=== PATIENT | female | born 1990 | race Caucasian/White ===

== ENCOUNTER 2019-03-06 00:53 | Inpatient (IN) | payer OTHER ==
[2019-03-06] MEDS ORDERED: SODIUM CHLORIDE 0.9% 500 ML INFUS.BAG IV ONE (02:37)
[2019-03-06] MEDS ORDERED: ACETAMINOPHEN 1000 MG/100 ML VIAL (NON FORMULARY) IVPB ONE (02:37)
--- NOTE | 2019-03-06 02:43 | PDOC ---
History of Present Illness - General Chief Complaint: Pain, Acute Stated Complaint: FEVER Time Seen by Provider: 03/06/19 01:38 - History of Present Illness Initial Comments: Ms. Lloyd is a 28 y/o female @ 24 weeks with hx of UTIs, presenting today with right sided flank pain that started 2 days ago associated with fever and chills. Reports that the pain starts in her right flank and radiates down to her right lower abdomen. No nausea/vomiting. No dysuria, no hematuria. Reports constipation. No vaginal bleeding or discharge. No blood in the stool. She has had prior UTIs before over the past several months, but is unsure of the antibiotics she was taking. No CP/SOB/ESTRADA. Past History - Past Medical History Allergies/Adverse Reactions: Allergies Allergy/AdvReac Type Severity Reaction Status Date / Time No Known Allergies Allergy Verified 03/06/19 01:22 Home Medications: Ambulatory Orders No122/Iron/Folic Acid [ Multi Tablet] 1 each PO DAILY 03/06/19 COPD: No - Suicide/Smoking/Psychosocial Hx Smoking History: Never smoked Review of Systems - Review of Systems Comments:: ROS GENERAL/CONSTITUTIONAL: Reports fever or chills. No weakness._ HEAD, EYES, EARS, NOSE AND THROAT: No change in vision. No change in hearing. No sore throat._ CARDIOVASCULAR: No chest pain or shortness of breath_ RESPIRATORY: Denies cough, hemoptysis_ GASTROINTESTINAL: No nausea, vomiting, diarrhea. Reports constipation. GENITOURINARY: No dysuria, frequency, or change in urination. MUSCULOSKELETAL: No joint or muscle swelling or pain. No neck pain. Reports right flank pain. SKIN: No rash_ NEUROLOGIC: No headache, vertigo, loss of consciousness, or change in strength/ sensation._ ENDOCRINE: No increased thirst. No abnormal weight change_ HEMATOLOGIC/LYMPHATIC: No anemia, easy bleeding, or history of blood clots._ ALLERGIC/IMMUNOLOGIC: No hives or skin allergy._ *Physical Exam - Vital Signs Last Vital Signs Temp Pulse Resp BP Pulse Ox 100.9 F H 142 H 20 129/66 98 03/06/19 01:21 03/06/19 01:21 03/06/19 01:21 03/06/19 01:21 03/06/19 01:21 - Physical Exam Comments: GENERAL: Awake, alert, and oriented to person/place/time, in no acute distress_ HEAD: No signs of trauma, normocephalic, atraumatic _ EYES: PERRLA, EOMI, sclera anicteric, conjunctiva clear_ ENT: Hearing grossly normal, nares patent, oropharynx clear without exudates. No uvular deviation. Moist mucosa_ NECK: Normal ROM, supple, no lymphadenopathy, JVD, or masses_ LUNGS: No distress, speaks in full sentences, clear to auscultation bilaterally _ HEART: Regular rate and rhythm, normal S1 and S2, no murmurs appreciated, peripheral pulses normal and equal bilaterally._ ABDOMEN: Soft, gravid, TTP RLQ, normoactive bowel sounds. No guarding, no rebound. No masses_ BACK: right sided CVA tenderness EXTREMITIES: Normal inspection, Normal range of motion, no edema. No clubbing or cyanosis_ NEUROLOGICAL: Cranial nerves II through XII grossly intact. Normal speech, normal gait, no focal sensorimotor deficits _ SKIN: Warm, Dry, normal turgor, no rashes or lesions noted_ ED Treatment Course - LABORATORY CBC & Chemistry Diagram: 03/06/19 02:35 03/06/19 02:35 Medical Decision Making - Medical Decision Making 28F @ 24 weeks presenting with 2 days of right flank pain associated with fever and chills. No dysuria, no hematuria. Prior UTIs befoire but cannot remember the abx she took. CBC, CMP, UA/UC, T+S, beta HCG quant. 03/06/19 04:08 Labs reviewed. WBC elevated. Patient reassessed. HR 115's. Sats 100%. Oral temp 100.8F 03/06/19 04:22 EKG shows NSR, 115 bpm, no axis deviation, no ST elevation/depression, QTc 462 ms. UA positive for leuk esterases and nitrites. 03/06/19 05:[address] Alexander ROTH who agrees to admit the patient for IV antibiotics. *DC/Admit/Observation/Transfer Diagnosis at time of Disposition: Pyelonephritis - Discharge Dispostion Condition at time of disposition: Stable - Referrals - Patient Instructions - Post Discharge Activity
[2019-03-06] MEDS ORDERED: ACETAMINOPHEN INJECTION 100 ML IVPB ONE (02:44)
--- NOTE | 2019-03-06 03:01 | PDOC ---
Attending Attestation - Resident Resident Name: Kunal Kelly - ED Attending Attestation I have performed the following: I have examined & evaluated the patient, The case was reviewed & discussed with the resident, I agree w/resident's findings & plan, Exceptions are as noted - HPI HPI: 03/06/19 04:25 28F 24w preg, hx of frequent UTI with 2 days of fevers and chills a/w R sided flank px radiating towards groin. Denies n/v, dysuria, urgency, frequency , vaginal bleeding, discharge. States that her urine has become malodorous over the past 2 days. - Physicial Exam PE: 03/06/19 04:27 NAD, AOx3, Well appearing Regular rhythm, tachycardic LCTAB normal wob +R CVAT Gravid abdomen, soft, nt, nd, no guarding, no rebound - Medical Decision Making 03/06/19 04:27 Febrile, tachycardic Preg with R flank px, +cvat, no abdominal tenderness consider pyelo, stone less likely, unlikely appy, anya f/u labs, ua dispo per clinical course 03/06/19 05:28 UA positive for infection Will admit for inpatient treatment of patient with pyelonephritis
[2019-03-06 03:18] LABS: HEMATOCRIT 37.1 % (32.4-45.2); MCH 29.5 pg (25.7-33.7); MONO % 6.8 % (3.8-10.2)
[2019-03-06 03:23] LABS: BASO % 0.2 % (0-2.0); EOS % 0.1 % (0-4.5); HEMOGLOBIN 12.2 GM/dL (10.7-15.3); LYMPH % 6.6 % (8-40); MCHC 32.9 g/dl (32.0-36.0); MEAN CELL VOLUME 89.6 fl (80-96); MEAN PLT VOLUME 8.6 fl (7.5-11.1); NEUT % 86.3 % (42.8-82.8); PLATELET COUNT 396 K/MM3 (134-434); RBC 4.14 M/mm3 (3.60-5.2); RDW 14.2 % (11.6-15.6); WHITE BLOOD COUNT 16.8 K/mm3 (4.0-10.0)
[2019-03-06 03:43] LABS: ALBUMIN 2.9 g/dl (3.4-5.0); BLOOD UREA NITROGEN 5.6 mg/dL (7-18); CREATININE 0.6 mg/dL (0.55-1.3); POTASSIUM 3.7 mmol/L (3.5-5.1); TOT PROT 6.6 g/dl (6.4-8.2)
[2019-03-06] MEDS ORDERED: SODIUM CHLORIDE IV ONE (04:10)
[2019-03-06 04:31] LABS: EPI CELLS 4.1 /HPF (0-5/HPF); HYALINE CASTS 9 /lpf (0-8); PH,URINE 7.5 (5.0-8.0); URINE APPEARANCE TURBID; URINE BACTERIA 4889.6 /hpf (NEGATIVE); URINE BILIRUBIN NEGATIVE (NEGATIVE); URINE COLOR YELLOW; URINE GLUCOSE (UA) NEGATIVE (NEGATIVE); URINE KETONE 2+ (NEGATIVE); URINE LEUK ESTERASE 3+ (NEGATIVE); URINE NITRITE POSITIVE (NEGATIVE); URINE PROTEIN TRACE (NEGATIVE); URINE RBC 5 /hpf (0-4); URINE WBC 521 /hpf (0-5)
[2019-03-06] MEDS ORDERED: CEFTRIAXONE 1,000 MG in DEXTROSE 5%-WATER - 50 ML IVPB ONE (04:32)
[2019-03-06] MEDS ORDERED: CEFTRIAXONE 1 GM/50 ML BAG ONE (04:50)
[2019-03-06] MEDS ORDERED: ACETAMINOPHEN 325 MG TABLET (FP) ONE ×2 (06:43→06:45)
[2019-03-06 06:57] VITALS: BMI 30.2
--- NOTE | 2019-03-06 08:49 | HP ---
Past Medical History - Primary Care Physician PCP:: Kp Munoz - Admission Chief Complaint: 24 weeks, pyelonephritis History of Present Illness: 28 yo f 24.2 weeks c/o fever , chills , rt falnk pain for 1 day, no hematuria , no vaginal discharge, no contraction, good fm History Source: Patient Limitations to Obtaining History: Language Barrier - Past Medical History ...: 2 ...Para: 1 ...Term: 1 ...: 0 ...Spon : 0 ...Induced : 0 ...Multiple Gestation: 0 ...LMP: 09/17/18 ... Weeks Gestation by Dates: 24.2 ...EDC by Dates: 06/24/19 - Past Surgical History Hx Myomectomy: No Hx Transabdominal Cerclage: No - Smoking History Smoking history: Never smoked Have you smoked in the past 12 months: No - Alcohol/Substance Use Hx Alcohol Use: No - Social History Usual Living Arrangement: Yes: With Spouse History of Recent Travel: No Home Medications - Allergies Allergies/Adverse Reactions: Allergies Allergy/AdvReac Type Severity Reaction Status Date / Time No Known Allergies Allergy Verified 03/06/19 01:22 - Home Medications Home Medications: Ambulatory Orders No122/Iron/Folic Acid [ Multi Tablet] 1 each PO DAILY 03/06/19 Review of Systems - Review of Systems Constitutional: reports: Fever, Night Sweats Eyes: reports: No Symptoms HENT: reports: No Symptoms Neck: reports: No Symptoms Cardiovascular: reports: Palpitations Respiratory: reports: No Symptoms Gastrointestinal: reports: No Symptoms Genitourinary: reports: Dysuria, Flank Pain, Frequency Breasts: reports: No Symptoms Reported Musculoskeletal: reports: No Symptoms Neurological: reports: No Symptoms Endocrine: reports: No Symptoms Physical Exam - Maternity Vital Signs: Vital Signs Temperature 99.2 F 03/06/19 07:30 Pulse Rate 106 H 03/06/19 07:30 Respiratory Rate 20 03/06/19 07:30 Blood Pressure 127/67 03/06/19 07:30 O2 Sat by Pulse Oximetry (%) 100 03/06/19 05:13 Constitutional: Yes: Well Nourished, No Distress, Calm Eyes: Yes: WNL, Conjunctiva Clear, EOM Intact HENT: Yes: WNL, Atraumatic, Normocephalic Neck: Yes: WNL, Supple, Trachea Midline Cardiovascular: Yes: WNL, Regular Rate and Rhythm Breast(s): Yes: WNL - Abdominal Exam/OB Fundal Height: 24 Number of Fetuses: Single Presentation: Transverse Contractions: No Intensity: Unaware Monitor Mode: External Heart Rate Location: Midline Category: I Accelerations: Non-Uniform Decelerations: None - Vaginal Exam/OB Vaginal Bleediing: No Speculum Exam: No Dilatation (cm): closed Effacement (%): 0 Amniotic Membrane Status: Intact Presentation: Transverse/Shoulder Station: -4 - Physical Exam Musculoskeletal: Yes: WNL Extremities: Yes: WNL Edema: No Integumentary: Yes: WNL Deep Tendon Reflex Grade: Normal +2 ...Motor Strength: WNL Psychiatric: Yes: WNL - Labs Lab Results: CBC, BMP 03/06/19 02:35 03/06/19 02:35 Hemorrhage Risk Assessment - Risk Factors Medium Risk Factors: Yes: None High Risk Factors: Yes: None Risk Score: 1 Risk Level: Medium Risk Problem List - Problems (1) with 24 completed weeks gestation Code(s): Z3A.24 - 24 WEEKS GESTATION OF (2) Pyelonephritis affecting Code(s): O23.00 - INFECTIONS OF KIDNEY IN , UNSPECIFIED TRIMESTER Qualifiers: Trimester: second trimester Qualified Code(s): O23.02 - Infections of kidney in , second trimester Assessment/Plan admit septic work up iv hydration id consult cont. Rocephin pending u/a, c/s monitor fm renal sono
[2019-03-06] MEDS: ACETAMINOPHEN 325 MG TABLET (FP) PO PRN ×3 (11:14→20:31)
--- NOTE | 2019-03-06 11:42 | EKG ---
Test Reason : Blood Pressure : / mmHG Vent. Rate : 115 BPM Atrial Rate : 115 BPM P-R Int : 122 ms QRS Dur : 076 ms QT Int : 334 ms P-R-T Axes : -28 054 005 degrees QTc Int : 462 ms SINUS TACHYCARDIA NONSPECIFIC ST ABNORMALITY NO PREVIOUS ECGS AVAILABLE Confirmed by RUTH FREGOSO MD ([id number]) on 03/06/2019 11:42:38 AM Referred By: Confirmed By:RUTH FREGOSO MD
--- NOTE | 2019-03-06 12:08 | PN ---
Progress Note (short form) - Note Progress Note: ID CONSULT DICTATED R PYELONEPHRITIS R/O SEPSIS SECONDARY TO SOURCE 24W IUP AWAIT C/S RENAL SONOGRAM EMPIRIC CEFTRIAXONE
[2019-03-06] MEDS: CEFTRIAXONE 2 GM in DEXTROSE 5%-WATER 100 ML IVPB SCH (13:38)
--- NOTE | 2019-03-06 13:51 | CONS ---
DATE OF CONSULTATION: 03/06/2019 HISTORY OF PRESENT ILLNESS: The patient is a 28-year-old female who is 24 weeks evaluated for recurrent urinary tract infections. Patient gives a history of recurrent UTIs. She now presents with a 2-day history of right flank pain, fever and chills. Patient states that she developed right flank pain, which radiated to her right groin. It was associated with malodorous urine. She denied any dysuria or hematuria. Upon presentation, she was noted to have a fever of 102.6 and a white blood cell count of 16.8. Cultures were obtained and she was empirically treated with ceftriaxone. She was unable to provide further details regarding her history of urinary tract infections, or history of antibiotic use. PAST MEDICAL HISTORY: As above. ALLERGIES: No known allergies. LABORATORY DATA: White count 16.8, hematocrit 37.1, platelet count 397. Creatinine 0.6. Urinalysis 521 white cells. Blood and urine cultures are pending. PHYSICAL EXAMINATION: General: On examination, she is awake and alert. She is not acutely toxic-appearing. Vitals: Temperature 99.2, T max 102.6, blood pressure 127/67, pulse 106 regular, respirations 18 per minute. HEENT: Sclera anicteric. Heart: Sounds S1, S2. Lungs: Clear. Abdomen: Nontender. There is right CVA tenderness to palpation. Extremities: Negative for edema, negative Wanda sign. IMPRESSION: 1. Acute right pyelonephritis. 2. Fever with leukocytosis, rule out sepsis secondary to genitourinary source. 3. This is a 24-week intrauterine . PLAN: Await culture results. Continue ceftriaxone 2 g IV piggyback daily. Obtain renal sonogram. Further recommendations pending clinical course. Will follow. Thank you for the kind referral. RUTH ROSALES M.D. [id number]
[2019-03-07] MEDS: DEXTROSE 5%-LACTATED RINGERS 1,000 ML IV SCH ×3 (00:03→23:04)
[2019-03-07] MEDS: ACETAMINOPHEN 325 MG TABLET (FP) PO PRN ×2 (03:49→10:59)
[2019-03-07 08:19] LABS: HEMATOCRIT 30.6 % (32.4-45.2); HEMOGLOBIN 10.3 GM/dL (10.7-15.3); MCH 29.7 pg (25.7-33.7); MCHC 33.7 g/dl (32.0-36.0); MEAN CELL VOLUME 88.1 fl (80-96); MEAN PLT VOLUME 8.5 fl (7.5-11.1); PLATELET COUNT 320 K/MM3 (134-434); RBC 3.47 M/mm3 (3.60-5.2); WHITE BLOOD COUNT 16.4 K/mm3 (4.0-10.0)
--- NOTE | 2019-03-07 08:47 | PN ---
Progress Note (short form) - Note Progress Note: hs #2 noc/o fever pain only on Rt side flank voiding wthout difficulty fm active no cramps or bleeding or leaking Selected Entries 03/06/19 03/07/19 14:00 05:09 Temperature 100.9 F H 98.1 F Pulse Rate 120 H 116 H Blood Pressure 92/46 L 120/70 afebrile , stable not in discomfort 24 weeks , fpf , fm palpable . Rt cva tenderness, no suprapubic or Lt cva tenderness Laboratory Tests 03/06/19 02:35 WBC 16.8 H Hgb 12.2 Hct 37.1 Absolute Neuts (auto) 14.5 H Neutrophils % 86.3 H Lymphocytes % 6.6 L Monocytes % 6.8 urine culture , lactose fermenting Ecoli >100,000 blood culture no growth today cbc pending Imp 24 weeks , Ac Pyelonephritis on Iv Ceftriaxone Plan ct iv antibiotics if afebrile today, will discharge tomorrow.
[2019-03-07] MEDS: CEFTRIAXONE 2 GM in DEXTROSE 5%-WATER 100 ML IVPB SCH (10:59)
[2019-03-07] MEDS ORDERED: ONDANSETRON 4 MG/2 ML VIAL IVPB PRN (21:00)
[2019-03-08] MEDS: DEXTROSE 5%-LACTATED RINGERS 1,000 ML IV SCH ×2 (06:01→16:23)
[2019-03-08 10:41] LABS: ALBUMIN 2.4 g/dl (3.4-5.0); BILIRUBIN,TOTAL 0.7 mg/dL (0.2-1); CALCIUM 8.2 mg/dL (8.5-10.1); CREATININE 0.5 mg/dL (0.55-1.3); POTASSIUM 3.1 mmol/L (3.5-5.1); TOT PROT 5.9 g/dl (6.4-8.2)
[2019-03-08 10:55] LABS: BLOOD UREA NITROGEN 2.3 mg/dL (7-18)
--- NOTE | 2019-03-08 11:10 | PN ---
Progress Note (short form) - Note Progress Note: hs # 3 24 weeks preg with Ac pyelonephritis pt c/o nausea & vomiting since yesterday. she does not c/o epigastric pain or heart burn she is receiving iv ceftriaxone 2gm urine c/s pos for ecoli fm active no cramps, no bleeding afebrile , v/s stable p/a 24 weeks , FPF , Fhs in midline taken by RN no cva tenderness rt or left c/o backache from lying down WBC count still elevated IMP : do appear avd us , r/o gall stones, check pancreas hypokalemia noted, correct it by Iv Kcl Selected Entries 03/08/19 06:06 Temperature 98.2 F Pulse Rate 98 H Blood Pressure 110/57 L Laboratory Tests 03/08/19 09:40 BUN 2.3 L* Laboratory Tests 03/07/19 03/08/19 07:00 09:40 WBC 16.4 H RBC 3.47 L Hgb 10.3 L Hct 30.6 L D MCV 88.1 MCH 29.7 MCHC 33.7 RDW 14.0 Plt Count 320 MPV 8.5 Sodium 139 Potassium 3.1 L Chloride 108 H Carbon Dioxide 25 Anion Gap 6 L BUN 2.3 L* Creatinine 0.5 L Est GFR (CKD-EPI)AfAm 150.52 Est GFR (CKD-EPI)NonAf 129.87 Calcium 8.2 L Total Bilirubin 0.7 AST 23 ALT 39 Alkaline Phosphatase 90 Total Protein 5.9 L Albumin 2.4 L IMP ; 24 weeks Ac pyelo , pos uc/s nausea & vomiting, hypokalemia Plan correct electrolyte imbalance check upper ab sono for gb/pancreas & liver if neg , may place on po zantac nausea can be due to iv antibitics
[2019-03-08] MEDS: CEFTRIAXONE 2 GM in DEXTROSE 5%-WATER 100 ML IVPB SCH (11:11)
[2019-03-08] MEDS: KCL 10 MEQ IVPB 10 MEQ/100 ML INFUS.BAG IVPB SCH ×2 (13:19→16:23)
[2019-03-09 03:18] VITALS: TEMP 98.2
[2019-03-09 09:10] LABS: BLOOD UREA NITROGEN 3.5 mg/dL (7-18); CREATININE 0.3 mg/dL (0.55-1.3); POTASSIUM 3.4 mmol/L (3.5-5.1)
[2019-03-09 10:22] LABS: BASO % 0.2 % (0-2.0); HEMATOCRIT 29.3 % (32.4-45.2); LYMPH % 17.6 % (8-40); MCH 29.9 pg (25.7-33.7); MCHC 34.2 g/dl (32.0-36.0); MEAN CELL VOLUME 87.4 fl (80-96); MEAN PLT VOLUME 7.9 fl (7.5-11.1); MONO % 6.3 % (3.8-10.2); NEUT % 74.9 % (42.8-82.8); PLATELET COUNT 366 K/MM3 (134-434); RBC 3.35 M/mm3 (3.60-5.2); RDW 14.2 % (11.6-15.6); WHITE BLOOD COUNT 9.4 K/mm3 (4.0-10.0)
[2019-03-09] MEDS: CEFTRIAXONE 2 GM in DEXTROSE 5%-WATER 100 ML IVPB SCH (10:38)
--- NOTE | 2019-03-09 10:52 | PN ---
Progress Note (short form) - Note Progress Note: pt feels better , she is anxious to go home no c/o nausea or vomiting fm are felt . no cramps , no bleeding no leaking afebrile v/s stable p/a 24 weeks , FPF fhs audible, checked by RN no cva tenderness bilateral, no suprapubic tenderness Selected Entries 03/09/19 06:00 Temperature 98.2 F Pulse Rate 78 Blood Pressure 84/42 L Laboratory Tests 03/09/19 07:36 Sodium 141 Potassium 3.4 L Chloride 108 H Carbon Dioxide 26 Anion Gap 6 L BUN 3.5 L Creatinine 0.3 L Random Glucose 69 L Calcium 8.0 L urine c/s Ecoli susciptible to cephalosporine hypokalemia improved upper abd us gallbladder normal, no gallstones, pancreas normal 02/20/19 OB sono by [facility]ale[facility] , sliup , 22.2 weeks, efw 1'1' , vx, anatomy wnl , edc assigned 06/24/19 cbc from today pending Imp . pt improved with IVceftriaxione 24 weeks Ac pyelonephritis plan discharge today rx po keflex 500mg tid x7 days ct vit diet counselling to eat fruits banana, orange ,apple kiwi Laboratory Tests 03/09/19 10:00 WBC 9.4 RBC 3.35 L Hgb 10.0 L Hct 29.3 L MCV 87.4 MCH 29.9 MCHC 34.2 RDW 14.2 Plt Count 366 MPV 7.9 Absolute Neuts (auto) 7.1 Neutrophils % 74.9 Lymphocytes % 17.6 D Monocytes % 6.3 Eosinophils % 1.0 D Basophils % 0.2 po iron after completing antibiotics counselled
[2019-03-09 14:45] VITALS: BP 126/54; PULSE 82
== END 2019-03-09 12:20 | disposition home or self-care (01) | DRG 566 ==
LOC: JER 00:53 → JERBED 04:36 → JLDR 06:23 → J3W 08:00
PROVIDERS: ADMIT Obstetrics & Gynecology; ATTEND Obstetrics & Gynecology
DX: O23.02 Infections of kidney in pregnancy, second trimester (principal); O26.892 Other specified pregnancy related conditions, second trimester; N10 Acute pyelonephritis; B96.29 Other Escherichia coli [E. coli] as the cause of diseases classified elsewhere; E87.6 Hypokalemia; Z3A.24 24 weeks gestation of pregnancy
CPT/HCPCS: 36415; 76705-TC; 76775-TC; 80048; 80053; 81003; 83605; 84702; 85025; 85027; 86850; 86900; 86901; 87040; 87086; 87186; 93005; 93010; 99285-25; J0131; J7030

== ENCOUNTER 2019-06-18 09:40 | Inpatient (IN) | payer OTHER ==
[2019-06-18] MEDS ORDERED: BUTORPHANOL TARTRATE 1 MG/ML VIAL ONE (10:02)
[2019-06-18] MEDS ORDERED: PROMETHAZINE HCL 25 MG/1 ML VIAL ONE (10:02)
[2019-06-18] MEDS ORDERED: PROMETHAZINE HCL 25 MG/1 ML VIAL IVPB ONE (10:30)
[2019-06-18] MEDS ORDERED: BUTORPHANOL TARTRATE 2 MG/ML VIAL IVPB ONE (10:30)
[2019-06-18] MEDS ORDERED: DEXTROSE 5%-LACTATED RINGERS 1,000 ML IV SCH (10:30)
[2019-06-18 10:47] VITALS: BMI 32.4
[2019-06-18 10:53] LABS: BASO % 0.5 % (0-2.0); EOS % 0.3 % (0-4.5); HEMATOCRIT 34.3 % (32.4-45.2); HEMOGLOBIN 11.5 GM/dL (10.7-15.3); LYMPH % 10.7 % (8-40); MCH 28.8 pg (25.7-33.7); MCHC 33.5 g/dl (32.0-36.0); MEAN CELL VOLUME 86.1 fl (80-96); MEAN PLT VOLUME 8.6 fl (7.5-11.1); MONO % 5.3 % (3.8-10.2); NEUT % 83.2 % (42.8-82.8); PLATELET COUNT 368 K/MM3 (134-434); RBC 3.98 M/mm3 (3.60-5.2); RDW 15.5 % (11.6-15.6)
--- NOTE | 2019-06-18 11:07 | HP ---
Past Medical History - Primary Care Physician PCP:: Juliann Cazares - Admission Chief Complaint: 29 yrs , 39.2 weeks iup admitted in labor , onset LP since 10.00 PM 06/17/19 History of Present Illness: pnc at , [address] [place] [address] clinic, wt gain 18 lbs panel 11/13/18 : O pos , Gc/Ct neg, Hiv neg, Rubella pos, Varicella pos , Hbsag neg, Hep c nr , Rpr nr, h/o pap LGSIL 28 week panel : pngt 106, rpr nr. Quantiferon pos , 05/10/2017 Chest Xray rt lung base 3mm nodule possible granuloma 05/28/19 : gc/ct neg. 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 03/06/17 chest Xray rt lung base 3mm granuloma). No: Asthma Gastrointestinal: No: GERD Renal/: Yes: UTI (h/o pyelonephritis) ...: 2 ...Para: 1 ( 08/04/19o8 , 7lb in [facility] ) ...Term: 1 ...: 0 ...Spon : 0 ...Induced : 0 ...Multiple Gestation: 0 ...LMP: 09/17/18 ... Weeks Gestation by Dates: 39.2 ...EDC by Dates: 06/24/19 ...EDC by Sono: 06/24/19 Heme/Onc: No: Anemia Infectious Disease: Yes: Tuberculosis (pos quantiferon). No: AIDS, HIV, STD's Psych: No: Addictions, Anxiety, Bipolar, Depression, Panic, Psychosis, Schizophrenia - Past Surgical History Past Surgical History: Yes: None Hx Myomectomy: No Hx Transabdominal Cerclage: No - Smoking History Smoking history: Never smoked Have you smoked in the past 12 months: No - Alcohol/Substance Use Hx Alcohol Use: No History of Substance Use: reports: None - Social History History of Recent Travel: No Home Medications - Allergies Allergies/Adverse Reactions: Allergies Allergy/AdvReac Type Severity Reaction Status Date / Time pineapple Allergy Verified 06/18/19 10:16 - Home Medications Home Medications: Ambulatory Orders No122/Iron/Folic Acid [ Multi Tablet] 1 each PO DAILY 03/06/19 Physical Exam - Maternity Vital Signs: Vital Signs Temperature 98.2 F 06/18/19 09:40 Pulse Rate 114 H 06/18/19 09:40 Respiratory Rate 18 06/18/19 09:40 Blood Pressure 112/80 06/18/19 09:40 O2 Sat by Pulse Oximetry (%) Constitutional: Yes: Well Nourished Eyes: Yes: WNL HENT: Yes: WNL, Normocephalic Neck: Yes: WNL Cardiovascular: Yes: WNL, Regular Rate and Rhythm Lungs: Clear to auscultation Breast(s): Yes: Other (not examined) - Abdominal Exam/OB Fundal Height: 40 Number of Fetuses: Single Presentation: Vertex Contractions: Yes Regularity: Regular (3-4 min) Intensity: Mod/Strong Monitor Mode: External Heart Rate (range): 135 Heart Rate Location: Midline Category: I Accelerations: Uniform Decelerations: None - Vaginal Exam/OB Vaginal Bleediing: No Speculum Exam: No Dilatation (cm): 7 Effacement (%): 80 Amniotic Membrane Status: Ruptured (AROM at 10,40 AM) Amniotic Fluid: Yes: Meconium Stained (light) Meconium: Light Presentation: Vertex/Position Station: -3 (-3/-2 asynclitic head exam at 10.40 AM) - Physical Exam Extremities: Yes: WNL. No: Calf Tenderness Edema: Yes Edema: LLE: 1+, RLE: 1+ Integumentary: Yes: WNL Deep Tendon Reflex Grade: Normal +2 ...Motor Strength: WNL Psychiatric: Yes: WNL, Alert, Oriented - Labs Lab Results: CBC, BMP 06/18/19 10:25 Laboratory Tests 06/18/19 06/18/19 06/18/19 10:25 10:25 10:25 PT with INR 10.90 INR 0.92 PTT (Actin FS) 27.2 Sodium 139 Potassium 3.7 Chloride 111 H Carbon Dioxide 20 L BUN 9.9 Creatinine 0.6 Random Glucose 131 H Blood Type O POSITIVE Antibody Screen Negative Problem List - Problems (1) with 39 completed weeks gestation Code(s): Z3A.39 - 39 WEEKS GESTATION OF (2) Labor established Code(s): TEC7700 - Assessment/Plan 29 yrs , 39.2 weeks iup admitted in labor . gbs neg stadol 1 mg + phenrgan 25 mg iv stat for labor analgesia was given 10.05 AM Plan trial vaginal delivery
[2019-06-18] MEDS ORDERED: OXYTOCIN 20 UNITS in 0.9% NS 20 UNIT/1,000 ML INFUS.BAG IV ONE (11:15)
[2019-06-18] MEDS ORDERED: LIDOCAINE HCL 1% PRESERVATIVE FREE - 30ML VIAL ONE (11:15)
[2019-06-18 11:18] LABS: INR 0.92 (0.83-1.09); PROTHROMBIN TIME (PATIENT) 10.9 SEC (9.7-13.0)
[2019-06-18 11:20] LABS: ACTIVATED PTT 27.2 SECONDS (25.2-36.5); BLOOD UREA NITROGEN 9.9 mg/dL (7-18); CALCIUM 8.5 mg/dL (8.5-10.1); CREATININE 0.6 mg/dL (0.55-1.3); POTASSIUM 3.7 mmol/L (3.5-5.1)
[2019-06-18] MEDS ORDERED: FENTANYL/BUPIVACAINE/NS/PF - PCEA - 50 ML DISP.SYRIN EP ONE (12:09)
[2019-06-18] MEDS ORDERED: BUPIVACAINE HCL/PF 2.5 MG/ML - 30 ML VIAL IJ ONE (12:15)
[2019-06-18] MEDS ORDERED: LIDO 2%/EPI 1:200000 PRESRVFRE (20 ML SDVIAL) ONE (12:16)
[2019-06-18] MEDS ORDERED: SODIUM CHLORIDE 100 ML IVPB ONE (12:16)
--- NOTE | 2019-06-18 12:21 | PN ---
Progress Note, Labor Vaginal Exam #1 Labor Exam Date: 06/18/19 Labor Exam Time: 12:00 Heart Rate (range): 130-140 Dilatation: 7 Effacement (%): 80 Amniotic Membrane Status: Ruptured Presentation: Vertex/Position Station: -2 Remarks: uc are 2-3 min . moderate , fhr cat-1 pt is pushing , she is refrained from pushing offered epidural , she accepted Selected Entries 06/18/19 12:00 Temperature 98.4 F Pulse Rate 70 Blood Pressure 137/76 Vaginal Exam #2 Labor Exam Date: 06/18/19 Labor Exam Time: 13:55 Heart Rate (range): 140 Dilatation: 7-8 Effacement (%): 80 Amniotic Membrane Status: Ruptured Presentation: Vertex/Position Station: -1 Remarks: fhr cat-1 , decel during exam down to 110 uc q 2-3 min Selected Entries 06/18/19 06/18/19 13:00 13:05 Temperature 98.5 F Pulse Rate 70 Blood Pressure 102/[address] at 12.35 PM Vaginal Exam #3 Labor Exam Date: 06/18/19 Labor Exam Time: 16:00 Heart Rate (range): 145-120 Dilatation: 9 Effacement (%): 90 Amniotic Membrane Status: Ruptured Presentation: Vertex/Position Station: +1 (+1/+2, caput) Remarks: fhr cat -2 uc 2-3 min mod Selected Entries 06/18/19 15:30 Pulse Rate 99 H Blood Pressure 115/73 Vaginal Exam #4 Labor Exam Date: 06/18/19 Labor Exam Time: 16:45 Heart Rate (range): 145-120 Dilatation: 10 Effacement (%): 100 Amniotic Membrane Status: Ruptured Presentation: Vertex/Position Station: +2 (+2/+3) Remarks: fhr cat-2 , ? early decel UC q2-3 min pt pushing Selected Entries 06/18/19 16:15 Pulse Rate 108 H Blood Pressure 101/66
[2019-06-18] MEDS ORDERED: ELECTROLYTE-148 SOLN 1,000 ML IV SCH (12:30)
[2019-06-18] MEDS ORDERED: NALOXONE HCL 0.4 MG/ML VIAL IVPUSH PRN (12:55)
[2019-06-18] MEDS ORDERED: FENTANYL/BUPIVACAINE/NS/PF - PCEA - 50 ML DISP.SYRIN EP SCH (13:00)
[2019-06-18] MEDS ORDERED: OXYTOCIN 30 UNITS in 0.9% NS 30 UNIT/500 ML INFUS.BAG IVPB ONE (13:11)
[2019-06-18] MEDS ORDERED: OXYTOCIN 30 UNITS in 0.9% NS 30 UNIT/500 ML INFUS.BAG IVPB SCH (13:15)
[2019-06-18] MEDS ORDERED: WITCH HAZEL 50% (TUCKS) 40 PAD/JAR PAD TP PRN (17:29)
[2019-06-18] MEDS ORDERED: oxyCODONE HCL 5 MG TABLET PO PRN (17:29)
[2019-06-18] MEDS ORDERED: BENZOCAINE 28 GM HEMORRHOIDAL OINTMENT TP PRN (17:29)
[2019-06-18] MEDS ORDERED: METHYLERGONOVINE MALEATE 0.2 MG/1 ML AMP IM PRN (17:29)
[2019-06-18] MEDS ORDERED: BENZOCAINE 20% 57 GM BOTTLE TP PRN (17:29)
[2019-06-18] MEDS ORDERED: BISACODYL 10 MG SUPP.RECT RC PRN (17:29)
[2019-06-18] MEDS ORDERED: OXYTOCIN 20 UNITS in 0.9% NS 20 UNIT/1,000 ML INFUS.BAG IV SCH (17:30)
[2019-06-18] MEDS ORDERED: IBUPROFEN 600 MG TABLET (FP) PO ONE (17:39)
[2019-06-18] MEDS ORDERED: ACETAMINOPHEN 325 MG TABLET (FP) ONE (17:39)
--- NOTE | 2019-06-18 17:39 | PN ---
Delivery - Delivery Vaginal Delivery: No Problems, Spontaneous Type of Anesthesia: Local, Epidural Episiotomy/Laceration: Vaginal Extension/lac (Right lateral vaginal laceration , actively bleeding , sutured with chr catgut #2/0), 1st degree EBL (cc): 350 Delivery, Single - Stages of Labor Date 1st Stage Initiatied: 06/17/19 Time 1st Stage Initiated: 22:00 Date 2nd Stage Initiated: 06/25/19 Time 2nd Stage Initiated: 16:46 Date of Delivery: 06/18/19 Time of Delivery: 17:01 Date Placenta Delivered: 06/18/19 Time Placenta Delivered: 17:02 Placenta: Yes: Spontaneous, Uterine Exploration - Condition of Infant Infant Gender: Male Weight: 7 lb 8 oz Position: Left, OA Total Hours ROM (Hrs/Mins): 6'17", mec, moderate - 1 Minute Total Score: 9 5 Minutes Total Score: 9 - Feeding Plan Initial Plan: Exclusive throughout hospitalization Remarks - Remarks Remarks: 29 yrs , 39.2 weeks in labor pnc at [address] [place] [address] ipost Temp 100.4 plan 2 gm ivpb ancef prophylactic
[2019-06-18] MEDS ORDERED: ceFAZolin 2 GRAM PREMIX BAG IVPB ONE (17:40)
[2019-06-18] MEDS: ACETAMINOPHEN 325 MG TABLET (FP) PO PRN (17:45)
[2019-06-18] MEDS: IBUPROFEN 600 MG TABLET (FP) PO PRN (17:45)
[2019-06-18] MEDS: FERROUS SO4 325 MG TABLET (FP) PO SCH (18:34)
[2019-06-19] MEDS: FERROUS SO4 325 MG TABLET (FP) PO SCH ×2 (08:23→17:22)
--- NOTE | 2019-06-19 08:41 | PN ---
Progress Note (short form) - Note Progress Note: ppd1 s/p , doing well, no excess vaginal bleeding CBC, BMP 06/18/19 10:25 06/18/19 10:25 Last Vital Signs Temp Pulse Resp BP Pulse Ox 98.0 F 99 H 18 110/68 97 06/19/19 04:15 06/19/19 04:15 06/19/19 04:15 06/19/19 04:15 06/18/19 18:05 abdomen soft, non tender ,no cva uterus firm, non tender lochia mild no calf tenderness ppd1 afebrile plan ambulate ,cbc
[2019-06-19] MEDS: PRENATAL VITAMINS W/ FOLIC ACID TABLET (FP) PO SCH (09:20)
[2019-06-19 09:22] LABS: BASO % 0.3 % (0-2.0); EOS % 0.5 % (0-4.5); HEMATOCRIT 26.6 % (32.4-45.2); HEMOGLOBIN 9.1 GM/dL (10.7-15.3); LYMPH % 16.6 % (8-40); MCH 29.5 pg (25.7-33.7); MEAN CELL VOLUME 86.5 fl (80-96); MEAN PLT VOLUME 8.6 fl (7.5-11.1); MONO % 6.8 % (3.8-10.2); NEUT % 75.8 % (42.8-82.8); PLATELET COUNT 335 K/MM3 (134-434); RBC 3.08 M/mm3 (3.60-5.2); RDW 15.6 % (11.6-15.6); WHITE BLOOD COUNT 15.1 K/mm3 (4.0-10.0)
[2019-06-19] MEDS: IBUPROFEN 600 MG TABLET (FP) PO PRN (12:10)
[2019-06-19] MEDS: ACETAMINOPHEN 325 MG TABLET (FP) PO PRN (12:11)
[2019-06-19] MEDS ORDERED: SENNOSIDES/DOCUSATE COMBO (SENNA PLUS) TABLET (UD) PO PRN (22:00)
[2019-06-20] MEDS: IBUPROFEN 600 MG TABLET (FP) PO PRN ×2 (01:18→12:01)
[2019-06-20] MEDS: ACETAMINOPHEN 325 MG TABLET (FP) PO PRN ×2 (01:18→12:02)
--- NOTE | 2019-06-20 10:46 | DS ---
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 No: Calf Tenderness Edema: LLE: 1+, RLE: 1+ Neurological: Yes: WNL, Alert, Oriented ...Motor Strength: WNL Psychiatric: Yes: WNL, Other (upset because infant in 3c nursery due to vomiting . doing better. pt reassured,) Labs: CBC, BMP 06/19/19 08:58 06/18/19 10:25 Delivery - Delivery Vaginal Delivery: No Problems, Spontaneous Type of Anesthesia: Local, Epidural Episiotomy/Laceration: Vaginal Extension/lac (Right lateral vaginal laceration , actively bleeding , sutured with chr catgut #2/0), 1st degree EBL (cc): 350 Delivery, Single - Stages of Labor Date 1st Stage Initiatied: 06/17/19 Time 1st Stage Initiated: 22:00 Date 2nd Stage Initiated: 06/25/19 Time 2nd Stage Initiated: 16:46 Date of Delivery: 06/18/19 Time of Delivery: 17:01 Time Placenta Delivered: 17:02 Placenta: Yes: Spontaneous, Uterine Exploration - Condition of Weatherization Director/Senior Human Resources Representative Present: No Gender: Male Weight: 7 lb 8 oz Position: Left, OA Total Hours ROM (Hrs/Mins): 6'17", mec, moderate - 1 Minute Total Score: 9 5 Minutes Total Score: 9 - Bigfoot Feeding Plan Initial Plan: Exclusive throughout hospitalization Remarks - Remarks Remarks: 29 yrs , 39.2 weeks in labor pnc at , [facility] Temp 100.4 plan 2 gm ivpb ancef prophylactic pp course uneventful anemia counselled plan discharge today infant in 3 c nursery not discharged Discharge Summary Problems reviewed: Yes Reason For Visit: LABOR ADMISSION Current Active Problems Labor established (Acute) Normal spontaneous vaginal delivery (Acute) with 39 completed weeks gestation (Acute) Procedures: Principal: Hospital Course: uneventful Health Concerns: anemia Plan of Treatment: as directed Goals: maternal & infant well being Condition: Stable - Instructions Diet, Activity, Other Instructions: Post Instructions DIET: Continue good diet high in protein, calcium, and iron rich foods. Drink at least eight (8) glasses of water daily in addition to other fluids. ct Regular diet MEDICATIONS: Continue vitamins and iron as previously directed. Motrin and Tylenol may be taken for minor discomfort. ACTIVITY: Mild to moderate exercise may be started in two (2) weeks. Take frequent rest periods. Resume normal activity after six (6) week check up. WOUND CARE OF OPERATIVE SITE: Continue use of perineal bottle until vaginal discharge stops. Keep area clean. Shower daily. Keep abdominal wound dry. Report any drainage or redness to physician. Tub baths, tampons and douches are not permitted for [address] Breast feeding & Bottle feeding BREAST CARE: (For those that are not ): If engorgement occurs: Wear tight fitting bra. Take Tylenol or Motrin for pain. Apply cold packs (ice in bags to each breast ) FAMILY PLANNING: There are many control alternatives to pursue and they should be discussed at your first office visit. You may resume sexual activity after your six (6) week check up. (Remember, is not a contraceptive) NEXT PHYSICIAN APPOINTMENT: Be certain to call for a four-six (4-(6) week appointment, unless otherwise directed. Call Clinic or got to Emergency Dept if you have any of the following: Heavy vaginal bleeding Painful urination Leg pain Unusual odor noted to vaginal bleeding High fever Red streaking noted on breast Referrals: Juliann Cazares MD [Staff Physician] - Disposition: HOME - Home Medications Comprehensive Discharge Medication List: Ambulatory Orders No122/Iron/Folic Acid [ Multi Tablet] 1 each PO DAILY 03/06/19 Acetaminophen [Tylenol .Regular Strength -] 650 mg PO Q3H PRN tablet 06/19/19 Benzocaine [Americaine 20% [place] -] 1 spray TP PRN PRN bottle 06/19/19 Ferrous Sulfate [Feosol] 325 mg PO BIDWM #60 tab 06/19/19 Ibuprofen [Motrin -] 200 mg PO Q4H PRN tablet 06/19/19 Vitamins (Sjr) - 1 tab PO DAILY #30 tablet 06/19/19 Sennosides/Docusate Sodium [Pericolace -] 2 tablet PO HS PRN #60 tablet Witch Jyotsna 50% (Tucks) [Tucks Pads -] 1 pad TP PRN PRN pad 06/19/19
[2019-06-20 10:51] VITALS: BP 108/72; PULSE 86
[2019-06-20] MEDS: PRENATAL VITAMINS W/ FOLIC ACID TABLET (FP) PO SCH (11:06)
[2019-06-20] MEDS: FERROUS SO4 325 MG TABLET (FP) PO SCH (11:06)
[2019-06-20 14:04] VITALS: TEMP 98.2
== END 2019-06-20 13:15 | disposition home or self-care (01) | DRG 560 ==
LOC: JLDR 09:40 → J3W 20:05
PROVIDERS: ADMIT Obstetrics & Gynecology; ATTEND Obstetrics & Gynecology
PROC: 0HQ9XZZ Repair Perineum Skin, External Approach (ICD-10-PCS; principal; 2019-06-18)
PROC: 10E0XZZ Delivery of Products of Conception, External Approach (ICD-10-PCS; 2019-06-18)
DX: O99.02 Anemia complicating childbirth (principal); D64.9 Anemia, unspecified; O70.0 First degree perineal laceration during delivery; Z3A.39 39 weeks gestation of pregnancy; Z37.0 Single live birth
CPT/HCPCS: 36415; 36600; 59409; 71046-TC-FY; 80048; 82803; 85025; 85610; 85730; 86593; 86850; 86900; 86901

== ENCOUNTER 2019-08-25 11:41 | Emergency (ER) | payer OTHER ==
[2019-08-25 12:03] VITALS: BP 110/65; BMI 39.8
[2019-08-25] MEDS ORDERED: IBUPROFEN 600 MG TABLET (FP) PO ONE ×2 (12:31→12:45)
[2019-08-25] MEDS ORDERED: ONDANSETRON *ODT* 4 MG TABLET SL ONE (12:35)
[2019-08-25] MEDS ORDERED: SODIUM CHLORIDE 0.9% 500 ML INFUS.BAG IV ONE (12:36)
[2019-08-25] MEDS ORDERED: ONDANSETRON 4 MG/2 ML VIAL IVPUSH ONE (12:37)
--- NOTE | 2019-08-25 12:38 | PDOC ---
History of Present Illness - General History Source: Patient Exam Limitations: No Limitations - History of Present Illness Initial Comments: 08/25/19 12:32 Patient is a 29-year-old female who presents to the ED with 3 days of body aches , intermittent fevers, sore throat, cough. She states she got a flu shot in June 2019. She took Tylenol at 7 AM today. She denies any shortness of breath. She denies any past medical history or allergies to medications. She denies any sick contacts. She does admit to having some nausea and epigastric pain with 2 episodes of vomiting today. <Jen Hou - Last Filed: 08/25/19 14:59> <Gerardo Steele - Last Filed: 08/29/19 10:32> - General Chief Complaint: Pain Stated Complaint: ABD PAIN/VOMITING/FEVER Time Seen by Provider: 08/25/19 12:23 Past History - Past Medical History Asthma: No Cancer: No Cardiac Disorders: No COPD: No Diabetes: No HTN: No Seizures: No Thyroid Disease: No - Reproductive History (#): 2 Para: 1 Spontaneous : 0 - Psycho Social/Smoking Cessation Hx Smoking History: Never smoked Have you smoked in the past 12 months: No Hx Alcohol Use: No Drug/Substance Use Hx: No Hx Substance Use Treatment: No <Jen Hou - Last Filed: 08/25/19 14:59> <Gerardo Steele - Last Filed: 08/29/19 10:32> - Past Medical History Allergies/Adverse Reactions: Allergies Allergy/AdvReac Type Severity Reaction Status Date / Time pineapple Allergy Verified 08/25/19 11:58 Home Medications: Ambulatory Orders No122/Iron/Folic Acid [ Multi Tablet] 1 each PO DAILY 03/06/19 Acetaminophen [Tylenol .Regular Strength -] 650 mg PO Q3H PRN tablet 06/19/19 Benzocaine [Americaine 20% [place] -] 1 spray TP PRN PRN bottle 06/19/19 Ferrous Sulfate [Feosol] 325 mg PO BIDWM #60 tab 06/19/19 Ibuprofen [Motrin -] 200 mg PO Q4H PRN tablet 06/19/19 Vitamins (Sjr) - 1 tab PO DAILY #30 tablet 06/19/19 Sennosides/Docusate Sodium [Pericolace -] 2 tablet PO HS PRN #60 tablet Witch Jyotsna 50% (Tucks) [Tucks Pads -] 1 pad TP PRN PRN pad 06/19/19 Oseltamivir Phosphate [Tamiflu] 75 mg PO BID #10 capsule 08/25/19 Review of Systems - Review of Systems Comments:: 08/25/19 12:34 - Review of Systems Able to Perform ROS?: Yes Constitutional: No: Night Sweats, Weakness; Positive: Fever, Chills, Loss of Appetite HEENTM: No: Eye Pain, Vision changes, Ear Pain, Throat Swelling, Mouth Pain, Difficulty Swallowing; Positive: Throat Pain Respiratory: No: Shortness of Breath, Wheezing, Sputum Production, Positive: Cough Cardiac (ROS): No: Chest Pain, Chest Tightness, Palpitations, Irregular Heart Beat, Edema ABD/GI: No: Abdominal Pain, Diarrhea; Positive: Nausea, Vomiting : No Dysuria, No Hematuria, No Frequency, No Urgency, No Vaginal Discharge/ Pain Musculoskeletal: No: Muscle Pain, Back Pain, Joint Pain, Muscle Weakness, Neck Pain Integumentary: No: Lesions, Rash Neurological: No: Headache, Numbness, Tingling, Weakness, Speech Difficulties <Jen Hou - Last Filed: 08/25/19 14:59> *Physical Exam - Vital Signs Last Vital Signs Temp Pulse Resp BP Pulse Ox 101.3 F H 126 H 18 110/65 98 08/25/19 11:58 08/25/19 11:58 08/25/19 11:58 08/25/19 11:58 08/25/19 11:58 - Physical Exam 08/25/19 12:37 - Physical Exam General Appearance: Nourished, Appropriately Dressed, No Distress, General unwell appearing but nontoxic HEENT: EOMI, Normal Voice, No Pharyngeal Erythema, No Muffled/Hoarse voice, No Tonsillar Exudate, No Tonsillar Erythema, No Nasal Congestion, No Rhinorrhea, Hearing Grossly Normal, TMs Normal, No TM Bulging, No TM Dullness, No TM Erythema Neck: Supple, No Lymphadenopathy (R), No Lymphadenopathy (L), No Rigidity, No Decreased range of motion Respiratory/Chest: Lungs Clear, Normal Breath Sounds. No Respiratory Distress, No Accessory Muscle Use Cardiovascular: Regular Rhythm, Regular Rate, S1, S2 Gastrointestinal/Abdominal: Normal Bowel Sounds, Soft. Non-tender, No Guarding , No Rebound, No Rigidity, No CVA tenderness bilateral Musculoskeletal: Normal Inspection. No Decreased Range of Motion; Diffuse tenderness to the back to palpation but primarily in the thoracic region Extremity: Normal Capillary Refill, Normal Inspection Integumentary: Normal Color, Dry. No Rash Neurologic: estimation manager II-XII NML intact, Fully Oriented, Alert, Normal Mood/Affect, Normal Response <Ameya,Jen D - Last Filed: 08/25/19 14:59> - Vital Signs Last Vital Signs Temp Pulse Resp BP Pulse Ox 99.4 F 104 H 17 110/65 99 08/25/19 14:13 08/25/19 14:13 08/25/19 14:13 08/25/19 11:58 08/25/19 14:13 <IvettePradipGerardo - Last Filed: 08/29/19 10:32> ED Treatment Course - LABORATORY CBC & Chemistry Diagram: 08/25/19 12:55 08/25/19 12:55 - ADDITIONAL ORDERS Additional order review: 08/25/19 13:56 Laboratory Tests 08/25/19 08/25/19 08/25/19 12:55 12:55 12:55 Urine Color Yellow Urine Appearance Clear Urine pH 5.0 D Ur Specific [place] 1.025 Urine Protein Trace Urine Glucose (UA) Negative Urine Ketones Negative Urine Blood Negative Urine Nitrite Negative Urine Bilirubin Negative Urine Urobilinogen 0.2 Ur Leukocyte Esterase Trace Urine WBC (Auto) 3 Urine RBC (Auto) 3 Urine Casts (Auto) 4 U Epithel Cells (Auto) 3.9 Urine Bacteria (Auto) 16.2 Urine HCG, Qual Negative Influenza A (Rapid) Negative Influenza B (Rapid) Positive A - RADIOLOGY Chest X-Ray Result: No Infiltrates <Ameya,Jen D - Last Filed: 08/25/19 14:59> - LABORATORY CBC & Chemistry Diagram: 08/25/19 12:55 08/25/19 12:55 - ADDITIONAL ORDERS Additional order review: 08/25/19 12:55 Urine Culture - Final Urine - Urine Clean Catch NO GROWTH OBTAINED 08/25/19 12:55 RBC 4.56 MCV 84.5 MCHC 33.2 RDW 14.2 MPV 8.1 Neutrophils % 82.0 Lymphocytes % 9.9 D Monocytes % 7.5 Eosinophils % 0.3 Basophils % 0.3 - Medications Given in the ED: ED Medications Discontinued Medications Generic Name Dose Route Start Last Admin Trade Name Carisa PRN Reason Stop Dose Admin Ibuprofen 600 mg 08/25/19 12:31 08/25/19 12:58 Motrin - PO 08/25/19 12:32 600 mg ONCE ONE Administration Ondansetron HCl 4 mg 08/25/19 12:35 08/25/19 12:58 Zofran Odt - SL 08/25/19 12:36 Not Given ONCE ONE Ondansetron HCl 4 mg 08/25/19 12:37 08/25/19 12:58 Zofran Injection IVPUSH 08/25/19 12:38 4 mg ONCE ONE Administration Sodium Chloride 1,000 ml 08/25/19 12:36 08/25/19 12:58 Normal Saline - IV 08/25/19 12:37 1,000 ml ONCE ONE Administration <Gerardo Steele - Last Filed: 08/29/19 10:32> Medical Decision Making - Medical Decision Making 08/25/19 12:38 Assessment: Patient is a 29-year-old female with fever, body aches, nausea, vomiting for the last 3 days. Plan: -Saline lock with IV fluids ordered -CBC, CMP, influenza, UA ordered -Zofran IV ordered -Motrin p.o. ordered -We will reassess 08/25/19 13:56 The patient has been made aware that she has influenza B. She has been advised to wear a mask at all times when around her baby since she has an . She is still pending her chest x-ray and CMP. 08/25/19 14:59 The patient has been made aware that she has slightly elevated liver function tests and this should be reassessed by her primary doctor. A prescription for Tamiflu has been sent to the patient's pharmacy. She has been advised to wear a mask at all times while with her infant as the influenza virus is very contagious. She understands and agrees with this treatment plan and she should see her primary doctor within 1 to 2 days for repeat evaluation. The patient stable for discharge. <Jen Hou - Last Filed: 08/25/19 14:59> - Medical Decision Making The patient was seen and evaluated in conjunction with ADAL Hou under my direct supervision, ancillary studies were reviewed. I agree with the plan as outlined by ADAL Hou. <Gerardo Steele - Last Filed: 08/29/19 10:32> Discharge - Discharge Information Problems reviewed: Yes <Jen Hou - Last Filed: 08/25/19 14:59> <Gerardo Steele - Last Filed: 08/29/19 10:32> - Discharge Information Clinical Impression/Diagnosis: Influenza B Condition: Stable Disposition: HOME - Additional Discharge Information Prescriptions: Oseltamivir Phosphate [Tamiflu] 75 mg PO BID #10 capsule - Follow up/Referral Referrals: [facility] [Provider Group] - Patient Discharge Instructions Patient Printed Discharge Instructions: DI for Influenza -- Adult Additional Instructions: Get plenty of rest and drink plenty of fluids. Take Tylenol or ibuprofen for fevers or body aches. Your liver function labs were slightly elevated and this should be reevaluated by your primary doctor. Be sure to stay away from the baby or wear a mask when around the baby because the flu is very contagious. Print Language: HEBREW
[2019-08-25] MEDS ORDERED: ONDANSETRON 4 MG/2 ML VIAL ONE (12:45)
[2019-08-25 13:26] LABS: BASO % 0.3 % (0-2.0); EOS % 0.3 % (0-4.5); HEMATOCRIT 38.6 % (32.4-45.2); HEMOGLOBIN 12.8 GM/dL (10.7-15.3); LYMPH % 9.9 % (8-40); MCHC 33.2 g/dl (32.0-36.0); MEAN CELL VOLUME 84.5 fl (80-96); MEAN PLT VOLUME 8.1 fl (7.5-11.1); MONO % 7.5 % (3.8-10.2); PLATELET COUNT 401 K/MM3 (134-434); RBC 4.56 M/mm3 (3.60-5.2); RDW 14.2 % (11.6-15.6); WHITE BLOOD COUNT 11.5 K/mm3 (4.0-10.0)
[2019-08-25 13:27] LABS: EPI CELLS 3.9 /HPF (0-5/HPF); HYALINE CASTS 4 /lpf (0-8); URINE APPEARANCE CLEAR; URINE BACTERIA 16.2 /hpf (NEGATIVE); URINE BILIRUBIN NEGATIVE (NEGATIVE); URINE COLOR YELLOW; URINE GLUCOSE (UA) NEGATIVE (NEGATIVE); URINE KETONE NEGATIVE (NEGATIVE); URINE LEUK ESTERASE TRACE (NEGATIVE); URINE NITRITE NEGATIVE (NEGATIVE); URINE PROTEIN TRACE (NEGATIVE); URINE RBC 3 /hpf (0-4); URINE UROBILINOGEN 0.2 mg/dL (0.2-1.0); URINE WBC 3 /hpf (0-5)
[2019-08-25 13:55] LABS: ALBUMIN 4.1 g/dl (3.4-5.0); BILIRUBIN,TOTAL 0.4 mg/dL (0.2-1); BLOOD UREA NITROGEN 12.2 mg/dL (7-18); CALCIUM 8.6 mg/dL (8.5-10.1); CREATININE 0.8 mg/dL (0.55-1.3); POTASSIUM 3.8 mmol/L (3.5-5.1); TOT PROT 7.8 g/dl (6.4-8.2)
[2019-08-25 14:14] VITALS: PULSE 104; TEMP 99.4
[2019-08-25 14:25] LABS: URINE CRYSTALS CALCIUM OXALATE /hpf
== END 2019-08-25 15:09 | disposition home or self-care (01) ==
LOC: JER 11:41
PROC: 3E033GC Introduction of Other Therapeutic Substance into Peripheral Vein, Percutaneous Approach (ICD-10-PCS; principal; 2019-08-25)
DX: J10.1 Influenza due to other identified influenza virus with other respiratory manifestations (principal)
CPT/HCPCS: 36415; 71046-TC-FY; 80053; 81003; 84703; 85025; 87086; 87804; 96374; 99284-25

== ENCOUNTER 2020-03-25 05:00 | Day surgery (SDC) | payer OTHER ==
[2020-03-24 12:42] VITALS: BMI 26.4
--- OUTSIDE RECORDS SUMMARY | 2020-03-25 05:09 | XMS ---
:1990 Author Organization [facility] Support Name Relationship Address Phone UE, UNEMPLOYED Unavailable Unavailable Unavailable KHADIJAH PRINCE [id number] [place] [address] UE Unavailable Unavailable Unavailable VASU VARGAS AUNT [address] [facility] [place] [address] KHADIJAH PRINCE Spouse [address] [place] [place] [id number] VASU VARGAS Unavailable [address] [phone] [place] [address] Re-disclosure Warning The records that you are about to access may contain information from federally- assisted alcohol or drug abuse programs. If such information is present, then the following federally mandated warning applies: This information has been disclosed to you from records protected by federal confidentiality rules (42 CFR part 2). The federal rules prohibit you from making any further disclosure of this information unless further disclosure is expressly permitted by the written consent of the person to whom it pertains or as otherwise permitted by 42 CFR part 2. A general authorization for the release of medical or other information is NOT sufficient for this purpose. The Federal rules restrict any use of the information to criminally investigate or prosecute any alcohol or drug abuse patient.The records that you are about to access may contain highly sensitive health information, the redisclosure of which is protected by Article 27-F of the [facility] Public Health law. If you continue you may haveaccess to information: Regarding HIV / AIDS; Provided by facilities licensed or operated by the [facility] Office of Mental Health; or Provided by the [facility] Office for People With Developmental Disabilities. If such information is present, then the following [facility] mandated warning applies: This information has been disclosed to you from confidential records which are protected by state law. State law prohibits you from making any further disclosure of this information without the specific written consent of the person to whom it pertains, or as otherwise permitted by law. Any unauthorized further disclosure in violation of state law may result in a fine or long term sentence or both. A general authorization for the release of medical or other information is NOT sufficient authorization for further disclosure. Allergies and Adverse Reactions Type Description Substance Reaction Status Data Source(s ) Propensity to Pineapple No known rash Active eCW3 ([facility] adverse reactions [facility]) Propensity to Pineapple No known rash Active eCW3 ([facility] adverse reactions [facility]) Propensity to Pineapple No known rash Active eCW3 ([facility] adverse reactions allergies [facility]) Propensity to Pineapple No known rash Active eCW3 ([facility] adverse reactions allergies [facility]) Propensity to Pineapple No known rash Active eCW3 ([facility] adverse reactions allergies [facility]) Propensity to Pineapple No known rash Active eCW3 ([facility] adverse reactions allergies [facility]) Propensity to Pineapple No known rash Active eCW3 ([facility] adverse reactions allergies [facility]) Propensity to Pineapple No known rash Active eCW3 ([facility] adverse reactions allergies [facility]) Propensity to Pineapple No known rash Active eCW3 ([facility] adverse reactions [facility]) Propensity to Pineapple No known rash Active eCW3 ([facility] adverse reactions [facility]) Propensity to Pineapple No known rash Active eCW3 ([facility] adverse reactions allergies [facility]) Propensity to Pineapple No known rash Active eCW3 ([facility] reactions [facility]) Propensity to Pineapple No known rash Active eCW3 ([facility] adverse reactions [facility]) No Known Allergies No Known Allergies No known eCW3 ([facility] allergies [facility] (situation) Care) Encounters Encounter Providers Location Date Indications Data Source(s ) (EOB) Established [facility] 04/24/2019 eCW 3 ([facility] 12:00:00 [facility] - [facility]) 04/24/2019 12:00:00 AM EDT (EOB) Established [facility] 04/09/2019 eCW 3 ([facility] 12:[facility]:00 [facility]) 04/09/2019 12:00:00 AM EDT (EOB) Established [facility] 03/27/2019 eCW 3 ([facility] 12:00:00 [facility]) 03/27/2019 12:00:00 AM EDT (EOB) Established [facility] 03/17/2019 eCW 3 ([facility] 12:00:00 [facility]) 03/17/2019 12:00:00 AM EDT (EOB) Established [facility] 02/13/2019 eCW 3 ([facility] 12:00:00 [facility]) 02/13/2019 12:00:00 AM EDT (EOB) Established [facility] 01/22/2019 eCW 3 ([facility] 12:00:00 [facility]) 01/22/2019 12:00:[address] [facility] 12/23/2018 eCW3 ([facility] 12:00:00 [facility]) 12/23/2018 12:00:[address] [facility] 12/10/2018 eCW3 ([facility] 12[facility]00:00 [facility]) 12/10/2018 12:00:[address] [facility] 12/09/2018 eCW3 ([facility] 12:00:00 [facility] - [facility]) 12/09/2018 12:00:[address] [facility] 11/13/2018 eCW3 ([facility] 12[facility]00:00 [facility] - [facility]) 11/13/2018 12:00:[address] [facility] 10/22/2018 eCW3 ([facility] 12:00:00 [facility]) 10/22/2018 12:00:[address] [facility] 10/21/2018 eCW3 ([facility] 12:00:00 [facility] - [facility]) 10/21/2018 12:00:[address] [facility] 09/15/2018 eCW3 ([facility] 12:00:00 AM [facility] - [facility]) 09/15/2018 12:00:[address] [facility] 09/01/2018 eCW3 ([facility] 12:00:00 AM [facility] EST - Care) 09/01/2018 12:00:00 AM EST Immunizations Vaccine Date Status Description Data Source(s) New in 2011. IIV4 05/26/2019 completed eCW3 ([facility] 04:18:00 PM EST Health Care) New in 2011. IIV4 05/26/2019 completed eCW3 ([facility] 04:18:00 PM EST Health Care) New in 2011. IIV4 05/26/2019 completed eCW3 ([facility] 04:18:00 PM EST Health Care) Tdap 03/27/2019 completed eCW3 ([facility] 10:39:00 AM EDT Health Care) Tdap 03/27/2019 completed eCW3 ([facility] 10:39:00 AM EDT Health Care) Tdap 03/27/2019 completed eCW3 ([facility] 10:39:00 AM EDT Health Care) New in 2011. IIV4 04/22/2018 completed eCW3 ([facility] 04:18:00 PM EDT Health Care) New in 2011. IIV4 04/22/2018 completed eCW3 ([facility] 04:18:00 PM EDT Health Care) New in 2011. IIV4 04/22/2018 completed eCW3 ([facility] 04:18:00 PM EDT Health Care) IIV3. This is one of 05/09/2016 completed eCW3 ([facility] which is being retired. IIV3. This is one of 05/09/2016 completed eCW3 ([facility] two codes replacing CVX 01:01:00 PM EDT [facility]) 15, which is being retired. IIV3. This is one of 05/09/2016 completed eCW3 ([facility] two codes replacing CVX 01:01:00 [facility] 15, which is being retired. Medications Medication Brand Start Product Dose Route Administrative Pharmacy [facility] Indications Reaction Description Data Name Date Form Instructions Instructions Source(s) Nystatin-Tr UNK 01/03/ 1.0 active Nystatin- Tri eCW3 iamcinolone 2020 {appl amcinolone ( [facility] 644987-3.1 12:00: icati 345837-0.1 [facility] UNIT/GM-% 00 AM on_to UNIT/GM-% [facility] EDT _affe Care) cted_ area} DEPO-GAS OPERATION MANAGER UNK 07/21/ active DEPO-PROV ERA eCW3 A 150 MG/ML 2020 150 MG/ML ([facility] 12:00: [facility] 00 AM Health EST Care) DEPO-GAS OPERATION MANAGER UNK 07/21/ active DEPO-PROV ERA eCW3 A 150 MG/ML 2020 150 MG/ML ([facility] 12:00: [facility] 00 AM Health EST Care) DEPO-GAS OPERATION MANAGER UNK 07/21/ active DEPO-PROV ERA eCW3 A 150 MG/ML 2020 150 MG/ML ([facility] 12:00: [facility] 00 AM Health EST Care) DEPO-GAS OPERATION MANAGER UNK 07/21/ active DEPO-PROV ERA eCW3 A 150 MG/ML 2020 150 MG/ML ([facility] 12:00: [facility] 00 AM Health EST Care) DEPO-GAS OPERATION MANAGER UNK 07/21/ active DEPO-PROV ERA eCW3 A 150 MG/ML 2020 150 MG/ML ([facility] 12:00: [facility] 00 AM Health EST Care) DEPO-GAS OPERATION MANAGER UNK 07/21/ active DEPO-PROV ERA eCW3 A 150 MG/ML 2020 150 MG/ML ([facility] 12:00: [facility] 00 AM Health EST Care) DEPO-GAS OPERATION MANAGER UNK 07/21/ active DEPO-PROV ERA eCW3 A 150 MG/ML 2020 150 MG/ML ([facility] 12:00: [facility] 00 AM Health EST Care) DEPO-GAS OPERATION MANAGER UNK 07/21/ active DEPO-PROV ERA eCW3 A 150 MG/ML 2020 150 MG/ML ([facility] 12:00: [facility] 00 AM Health EST Care) DEPO-GAS OPERATION MANAGER UNK 07/21/ active DEPO-PROV ERA eCW3 A 150 MG/ML 2020 150 MG/ML ([facility] 12:00: [facility] 00 AM Health EST Care) DEPO-GAS OPERATION MANAGER UNK 07/21/ active DEPO-PROV ERA eCW3 A 150 MG/ML 2020 150 MG/ML ([facility] 12:00: [facility] 00 AM Health EST Care) Prenat 1018 1.0 active e CW3 Vitamins al 2019 {tabl Vitamins ([place] [facility] 28-0.8 MG Vitami 12:00: et} 28-0.8 MG R iver ns 00 AM Health 28-0.8 EDT Care) MG Prenat 1.0 active e CW3 Vitamins al 2018 {tabl Vitamins ([place] [facility] 28-0.8 MG Vitami 12:00: et} 28-0.8 MG R iver ns 00 AM Health 28-0.8 EDT Care) MG Prenat 18 1.0 active e CW3 Vitamins al 2019 {tabl Vitamins ([place] [facility] 28-0.8 MG Vitami 12:00: et} 28-0.8 MG R iver ns 00 AM Health 28-0.8 EDT Care) MG Prenat 18 1.0 active e CW3 Vitamins al 2019 {tabl Vitamins ([place] 28-0.8 MG Vitami 12:00: et} 28-0.8 MG R iver ns 00 AM Health 28-0.8 EDT Care) MG Prenat 1018/ 1.0 active e CW3 Vitamins al 2019 {tabl Vitamins ([place] 28-0.8 MG Vitami 12:00: et} 28-0.8 MG R iver ns 00 AM Health 28-0.8 EDT Care) MG Prenat 10/18/ 1.0 active e CW3 Vitamins al 2019 {tabl Vitamins ([place] 28-0.8 MG Vitami 12:00: et} 28-0.8 MG R iver ns 00 AM Health 28-0.8 EDT Care) MG Prenat 1.0 active e CW3 Vitamins al 2018 {tabl Vitamins ([place] 28-0.8 MG Vitami 12:00: et} 28-0.8 MG R iver ns 00 AM Health 28-0.8 EDT Care) MG Prenat 1.0 active e CW3 Vitamins al 2018 {tabl Vitamins ([place] 28-0.8 MG Vitami 12:00: et} 28-0.8 MG R iver ns 00 AM Health 28-0.8 EDT Care) MG Prenat 1.0 active e CW3 Vitamins al 2018 {tabl Vitamins ([place] 28-0.8 MG Vitami 12:00: et} 28-0.8 MG R iver ns 00 AM Health 28-0.8 EDT Care) MG Prenat .0 active e CW3 Vitamins al 2018 {tabl Vitamins ([place] 28-0.8 MG Vitami 12:00: et} 28-0.8 MG R iver ns 00 AM Health 28-0.8 EDT Care) MG Prenat 1.0 active e CW3 Vitamins al 2018 {tabl Vitamins ([place] 28-0.8 MG Vitami 12:00: et} 28-0.8 MG R iver ns 00 AM Health 28-0.8 EDT Care) MG Prenat .0 active e CW3 Vitamins al 2018 {tabl Vitamins ([place] 28-0.8 MG Vitami 12:00: et} 28-0.8 MG R iver ns 00 AM Health 28-0.8 EDT Care) MG Cephalexin Keflex .0 active Keflex 5 00 eCW3 500 MG Oral 500 MG 2018 {caps MG ([facility] Capsule 12:00: ule} [facility] [Keflex] 00 AM Health Keflex 500 EDT Care) MG Cephalexin Keflex .0 active Keflex 5 00 eCW3 500 MG Oral 500 MG 2018 {caps MG ([facility] Caps[facility] 12:00: ule} [facility] [Keflex] 00 AM Health Keflex 500 EDT Care) MG Iron UNK active Iron eCW3 ([facility]) DEPO-GAS OPERATION MANAGER UNK active DEPO-GAS OPERATION MANAGER A eCW3 A 150 MG/ML 150 MG/ML ([facility]) Iron UNK active Iron eCW3 ([facility]) Iron UNK active Iron eCW3 ([facility]) DEPO-GAS OPERATION MANAGER UNK active DEPO-GAS OPERATION MANAGER A eCW3 A 150 MG/ML 150 MG/ML ([facility]) DEPO-GAS OPERATION MANAGER UNK active DEPO-GAS OPERATION MANAGER A eCW3 A 150 MG/ML 150 MG/ML ([facility]) DEPO-GAS OPERATION MANAGER UNK active DEPO-GAS OPERATION MANAGER A eCW3 A 150 MG/ML 150 MG/ML ([facility]) Iron UNK active Iron eCW3 ([facility]) DEPO-GAS OPERATION MANAGER UNK active DEPO-GAS OPERATION MANAGER A eCW3 A 150 MG/ML 150 MG/ML ([facility]) Iron UNK active Iron eCW3 ([facility]) Iron UNK active Iron eCW3 ([facility]) Iron UNK active Iron eCW3 ([facility]) DEPO-GAS OPERATION MANAGER UNK active DEPO-GAS OPERATION MANAGER A eCW3 A 150 MG/ML 150 MG/ML ([facility]) DEPO-GAS OPERATION MANAGER UNK active DEPO-GAS OPERATION MANAGER A eCW3 A 150 MG/ML 150 MG/ML ([facility]) Iron UNK active Iron eCW3 ([facility]) DEPO-GAS OPERATION MANAGER UNK active DEPO-GAS OPERATION MANAGER A eCW3 A 150 MG/ML 150 MG/ML ([facility]) DEPO-GAS OPERATION MANAGER UNK active DEPO-GAS OPERATION MANAGER A eCW3 A 150 MG/ML 150 MG/ML ([facility]) Iron UNK active Iron eCW3 ([facility]) Iron UNK active Iron eCW3 ([facility]) Insurance Providers Payer name Policy type Policy ID Covered Covered libertarian's Policy P ellie / Coverage libertarian ID relationship to Nicholson Inf ormation type nicholson ARUN [id number] ESSENTIAL PLAN 3 4 ARUN [id number] HEALTH NON CAP MEDICAID [id number] SP [id number] HEALTH [id number] SP [id number] SOLUTIONS Problems, Conditions, and Diagnoses Code Display Name Description Problem Type Effective Data Dates Source(s) R87.620 Atypical squamous Atypical squamous Problem 09/08/2019 eCW3 ([facility] cells of cells of 12:00:00 [facility] undetermined undetermined [facility]) significance on significance on cytologic smear of cytologic smear of vagina (ASC-US) vagina (ASC-US) R87.811 Vaginal high risk Vaginal high risk Problem 09/08/2019 eCW3 ([facility] human human 12:00:00 [facility] papillomavirus papillomavirus [facility]) (HPV) DNA test (HPV) DNA test positive positive Z86.19 History of HPV History of HPV Problem 08/18/2019 eCW3 ( [facility] infection infection 12:00:00 [facility]) R87.612 LGSIL on Pap smear LGSIL on Pap smear Problem 0 eCW3 ([facility] of cervix of cervix 12:00:00 [facility]) Z39.2 Encounter for Encounter for Problem 07/21/2019 eCW3 ( dson visit visit 12:00:00 AM [facility]) Z33.1 Problem eCW3 ([facility]) Z33.1 Problem eCW3 ([facility]) Social History Code Duration Value Status Description Data Source(s ) Smoking 01/04/2020 12:00:00 Never Smoker completed Never Smoker e CW3 ([facility]) Smoking 01/04/2020 12:00:00 Never Smoker completed Never Smoker e CW3 ([facility]) Smoking 01/04/2020 12:00:00 Never Smoker completed Never Smoker e CW3 ([facility]) Smoking 01/04/2020 12:00:00 Never Smoker completed Never Smoker e CW3 ([facility]) Smoking 01/04/2020 12:00:00 Never Smoker completed Never Smoker e CW3 ([facility]) Smoking 10/12/2019 12:00:00 Never Smoker completed Never Smoker e CW3 ([facility]) Smoking 10/12/2019 12:00:00 Never Smoker completed Never Smoker e CW3 ([facility]) Smoking 10/12/2019 12:00:00 Never Smoker completed Never Smoker e CW3 ([facility]) Smoking 10/12/2019 12:00:00 Never Smoker completed Never Smoker e CW3 ([facility]) Smoking 09/08/2019 12:00:00 Never Smoker completed Never Smoker e CW3 ([facility]) Smoking 06/11/2019 12:00:00 Never Smoker completed Never Smoker e CW3 ([facility]) Smoking 06/11/2019 12:00:00 Never Smoker completed Never Smoker e CW3 ([facility]) Smoking 12/23/2018 12:00:00 Never Smoker completed Never Smoker e CW3 ([facility]) Smoking 10/21/2018 12:00:00 Never Smoker completed Never Smoker e CW3 ([facility]) Never Smoker completed Never Smoker eCW3 ([facility]) Never Smoker completed Never Smoker eCW3 ([facility]) Never Smoker completed Never Smoker eCW3 ([facility]) Never Smoker completed Never Smoker eCW3 ([facility] Never Smoker completed Never Smoker eCW3 ([facility]) Never Smoker completed Never Smoker eCW3 ([facility]) Never Smoker completed Never Smoker eCW3 ([facility] Never Smoker completed Never Smoker eCW3 ([facility] Never Smoker completed Never Smoker eCW3 ([facility]) Never Smoker completed Never Smoker eCW3 ([facility]) Never Smoker completed Never Smoker eCW3 ([facility] Never Smoker completed Never Smoker eCW3 ([facility]) Never Smoker completed Never Smoker eCW3 ([facility]) Never Smoker completed Never Smoker eCW3 ([facility]) Vital Signs ID Date Data Source UNK Name Value Range Interpretation Code Description Data Source(s) Diastolic blood 64 mm[Hg] 64 mm[Hg] eCW3 ([facility]) Systolic blood 102 mm[Hg] 102 mm[Hg] eCW3 ([facility]) Body temperature 98.2 [degF] 98.2 [degF] eCW3 ( [facility]) Heart rate 20 /min 20 /min eCW3 ([facility]) Body mass index 31.886 kg/m2 31.886 kg/m2 eCW3 ([place] (BMI) [Ratio] [facility]) Body weight 180 [lb_av] 180 [lb_av] eCW3 ([facility]) Body height 63 [in_i] 63 [in_i] eCW3 ([facility]) Diastolic blood 68 mm[Hg] 68 mm[Hg] eCW3 ([facility]) Systolic blood 106 mm[Hg] 106 mm[Hg] eCW3 ([facility]) Body temperature 98.1 [degF] 98.1 [degF] eCW3 ( [facility]) Heart rate 20 /min 20 /min eCW3 ([facility]) Body mass index 31.354 kg/m2 31.354 kg/m2 eCW3 ([place] (BMI) [Ratio] [facility]) Body weight 177 [lb_av] 177 [lb_av] eCW3 ([facility]) Body height 63 [in_i] 63 [in_i] eCW3 ([facility]) Diastolic blood 74 mm[Hg] 74 mm[Hg] eCW3 ([facility]) Systolic blood 109 mm[Hg] 109 mm[Hg] eCW3 ([facility]) Body temperature 98.2 [degF] 98.2 [degF] eCW3 ( [facility]) Heart rate 20 /min 20 /min eCW3 ([facility]) Body mass index 31.354 kg/m2 31.354 kg/m2 eCW3 ([place] (BMI) [Ratio] [facility]) Body weight 177 [lb_av] 177 [lb_av] eCW3 ([facility]) Body height 63 [in_i] 63 [in_i] eCW3 ([facility]) Diastolic blood 63 mm[Hg] 63 mm[Hg] eCW3 ([facility]) Systolic blood 109 mm[Hg] 109 mm[Hg] eCW3 ([facility]) Body temperature 98.7 [degF] 98.7 [degF] eCW3 ( [facility]) Heart rate 20 /min 20 /min eCW3 ([facility]) Body mass index 31.496 kg/m2 31.496 kg/m2 eCW3 ([place] (BMI) [Ratio] [facility]) Body weight 177.8 177.8 [lb_av] eCW3 ([facility] on [lb_av] [facility]) Body height 63 [in_i] 63 [in_i] eCW3 ([facility]) Diastolic blood 60 mm[Hg] 60 mm[Hg] eCW3 ([facility]) Systolic blood 97 mm[Hg] 97 mm[Hg] eCW3 ([facility]) Body temperature 98.5 [degF] 98.5 [degF] eCW3 ( [facility]) Heart rate 20 /min 20 /min eCW3 ([facility]) Body mass index 31.496 kg/m2 31.496 kg/m2 eCW3 ([place] (BMI) [Ratio] [facility]) Body weight 177.8 177.8 [lb_av] eCW3 ([facility] on [lb_av] [facility]) Body height 63 [in_i] 63 [in_i] eCW3 ([facility]) Diastolic blood 68 mm[Hg] 68 mm[Hg] eCW3 ([facility]) Systolic blood 106 mm[Hg] 106 mm[Hg] eCW3 ([facility]) Body temperature 98.2 [degF] 98.2 [degF] eCW3 ( [facility]) Heart rate 20 /min 20 /min eCW3 ([facility]) Body mass index 31.531 kg/m2 31.531 kg/m2 eCW3 ([place] (BMI) [Ratio] [facility]) Body weight 178 [lb_av] 178 [lb_av] eCW3 ([facility]) Body height 63 [in_i] 63 [in_i] eCW3 ([facility]) Diastolic blood 66 mm[Hg] 66 mm[Hg] eCW3 ([facility]) Systolic blood 104 mm[Hg] 104 mm[Hg] eCW3 ([facility]) Body temperature 98.9 [degF] 98.9 [degF] eCW3 ( [facility]) Heart rate 20 /min 20 /min eCW3 ([facility]) Body mass index 30.823 kg/m2 30.823 kg/m2 eCW3 ([place] (BMI) [Ratio] [facility]) Body weight 174 [lb_av] 174 [lb_av] eCW3 ([facility]) Body height 63 [in_i] 63 [in_i] eCW3 ([facility]) Diastolic blood 77 mm[Hg] 77 mm[Hg] eCW3 ([facility]) Systolic blood 117 mm[Hg] 117 mm[Hg] eCW3 ([facility]) Body temperature 98.5 [degF] 98.5 [degF] eCW3 ( [facility]) Heart rate 20 /min 20 /min eCW3 ([facility]) Body mass index 30.752 kg/m2 30.752 kg/m2 eCW3 ([facility] (BMI) [Ratio] [facility]) Body weight 173.6 173.6 [lb_av] eCW3 ([facility] on [lb_av] [facility]) Body height 63 [in_i] 63 [in_i] eCW3 ([facility]) Diastolic blood 74 mm[Hg] 74 mm[Hg] eCW3 ([facility]) Systolic blood 110 mm[Hg] 110 mm[Hg] eCW3 ([facility]) Body temperature 98.4 [degF] 98.4 [degF] eCW3 ( [facility]) Heart rate 20 /min 20 /min eCW3 ([facility]) Body mass index 30.911 kg/m2 30.911 kg/m2 eCW3 ([place] (BMI) [Ratio] [facility]) Body weight 174.5 174.5 [lb_av] eCW3 ([facility] on [lb_av] [facility]) Body height 63 [in_i] 63 [in_i] eCW3 ([facility]) Diastolic blood 68 mm[Hg] 68 mm[Hg] eCW3 ([facility]) Systolic blood 106 mm[Hg] 106 mm[Hg] eCW3 ([facility]) Body temperature 99.1 [degF] 99.1 [degF] eCW3 ( [facility]) Heart rate 20 /min 20 /min eCW3 ([facility]) Body mass index 29.05 kg/m2 29.05 kg/m2 eCW3 ([facility] (BMI) [Ratio] [facility]) Body weight 164 [lb_av] 164 [lb_av] eCW3 ([facility]) Body height 63 [in_i] 63 [in_i] eCW3 ([facility]) Diastolic blood 74 mm[Hg] 74 mm[Hg] eCW3 ([facility]) Systolic blood 111 mm[Hg] 111 mm[Hg] eCW3 ([facility]) Body temperature 98.2 [degF] 98.2 [degF] eCW3 ( [facility]) Heart rate 20 /min 20 /min eCW3 ([facility]) Body mass index 29.76 kg/m2 29.76 kg/m2 eCW3 ([facility]ix armijo (BMI) [Ratio] [facility]) Body weight 168 [lb_av] 168 [lb_av] eCW3 ([facility]) Body height 63 [in_i] 63 [in_i] eCW3 ([facility]) Patient Treatment Plan of Care Planned Activity Planned Date Details Description Data Source (s) Nystatin-Triamcinolone 01/04/2020 12:00:00 eCW3 ([facility] 255703-8.1 UNIT/GM-% AM [facility]) DEPO-PROVERA 150 MG/ML eCW3 ([facility]) DEPO-PROVERA 150 MG/ML eCW3 ([facility]) DEPO-PROVERA 150 MG/ML eCW3 ([facility]) DEPO-PROVERA 150 MG/ML eCW3 ([facility]) DEPO-PROVERA 150 MG/ML eCW3 ([facility])
--- NOTE | 2020-03-25 09:08 | HP ---
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 08/11/18 pap LSIL, NON 16/18 HR HPV Pos 08/18/19 Pap : ASCUS , , NON 16/18 HR HPV POS 09/08/19 Colposcopy : satisfactory. WE semitransparent at 2O'clock & 6O'clock 2"clock BC LSIL ,6- Oclock BX HSIL , ECC neg ,degenrative tissuse possible EM Polyp pt on control Depo Provera q 3 months , last taken on 12/15/19 LD 06/18/2019 . Pt Breast feeding History Source: Patient, Medical Record Limitations to Obtaining History: No Limitations - Past Medical History Pulmonary: Yes: Other (pos Quantiferon . 03/06/17 chest Xray rt lung base 3mm granuloma). No: Asthma Gastrointestinal: No: Ascites, Cancer, Constipation, Crohn's Disease, Diverticulitis, Diverticulosis, Esophageal Varices, Gastritis, GERD, GI Bleed, Hemorrhoids, Hiatal Hernia, Inflamatory Bowel Disease, Irritable Bowel Disease, Pancreatitis, Peptic Ulcer Disease, Ulcerative Colitis, Other Hepatobiliary: No: Cirrhosis, Cholelithiasis, Cholecystitis, Choledocholithiasis, Hepatitis A, Hepatitis B, Hepatitis C, Other Renal/: Yes: UTI (h/o pyelonephritis) ...: 2 ...Para: 2 (G1 08/04/07, G2 on 06/18/19 ) ...Term: 2 Heme/Onc: No: Anemia, Sickle Cell Trait Infectious Disease: Yes: Tuberculosis (pos quantiferon). No: AIDS, HIV, STD's - Past Surgical History Past Surgical History: Yes: None Hx Myomectomy: No Hx Transabdominal Cerclage: No - Smoking History Smoking history: Never smoked Have you smoked in the past 12 months: No - Alcohol/Substance Use Hx Alcohol Use: No History of Substance Use: reports: None - Social History History of Recent Travel: No Home Medications - Allergies Allergies/Adverse Reactions: Allergies Allergy/AdvReac Type Severity Reaction Status Date / Time pineapple Allergy Verified 03/25/20 07:37 - Home Medications Home Medications: Ambulatory Orders Vitamins (Sjr) - 1 tab PO DAILY #30 tablet 06/19/19 Ferrous Sulfate [Feosol] 325 mg PO DAILY 03/24/20 Physical Exam-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 No: CVA Tenderness - Left, CVA Tenderness - Right Pelvis: Yes: WNL. No: Tenderness External Genitalia: Yes: Normal Internal Exam Deferred: Yes Vaginal Exam: Yes: Normal Cervix: Yes: Normal. No: Cerv Motion Tenderness Uterus: Yes: Normal, Freely Moveable, Anteverted, Firm. No: Tender Adnexa: Normal: Bilateral, Not Palpable: Bilateral Breast(s): Yes: WNL Musculoskeletal: Yes: WNL Extremities: Yes: WNL. No: Calf Tenderness Edema: No Integumentary: Yes: WNL Neurological: Yes: WNL ...Motor Strength: WNL Psychiatric: Yes: WNL, Alert, Oriented Labs: Laboratory Tests 03/06/19 06/18/19 03/22/20 04:19 10:25 11:55 WBC RBC Hgb MCV MCH MCHC RDW Plt Count MPV Absolute Neuts (auto) Neutrophils % Lymphocytes % Monocytes % Eosinophils % Basophils % Nucleated RBC % PT with INR INR PTT (Actin FS) 27.2 Sodium 142 Potassium 4.1 Carbon Dioxide 25 Anion Gap 7 L BUN 10.6 Creatinine 0.7 Est GFR (CKD-EPI)AfAm 132.87 Est GFR (CKD-EPI)NonAf 114.64 Random Glucose 76 Lactic Acid 0.9 Calcium 8.6 Total Bilirubin 0.6 AST 12 L ALT 26 Alkaline Phosphatase 96 Total Protein 8.0 Albumin 4.1 Beta HCG, Quant < 1.0 COVID-19 (MALENA) 03/22/20 03/22/20 03/22/20 11:55 11:55 12:01 WBC 10.4 H RBC 4.64 Hgb 13.6 MCV 86.2 MCH 29.2 MCHC 33.9 RDW 13.7 Plt Count 417 MPV 8.1 Absolute Neuts (auto) 6.6 Neutrophils % 63.5 Lymphocytes % 28.6 D Monocytes % 6.2 Eosinophils % 1.1 D Basophils % 0.6 Nucleated RBC % 0 PT with INR 12.40 INR 1.05 PTT (Actin FS) Sodium Potassium Carbon Dioxide Anion Gap BUN Creatinine Est GFR (CKD-EPI)AfAm Est GFR (CKD-EPI)NonAf Random Glucose Lactic Acid Calcium Total Bilirubin AST ALT Alkaline Phosphatase Total Protein Albumin Beta HCG, Quant COVID-19 ([facility]ALENA) Not detected Problem List - Problem (1) HSIL (high grade squamous intraepithelial lesion) on Pap smear of cervix Code(s): R87.613 - HIGH GRADE INTREPITH LESION CYTO SMR CRVX (HGSIL) (2) High risk human papilloma virus (HPV) infection of cervix Code(s): N72 - INFLAMMATORY DISEASE OF CERVIX UTERI; B97.7 - PAPILLOMAVIRUS THE CAUSE OF DISEASES CLASSIFIED ELSEWHERE Assessment/Plan 30 yrs , lactational amenoorhea also may be due to Depo Provera , diagnosed HSIL CX , Non 16/18 HR HPV POS PLan LEEP CONE BX Cx pt is aware of r/b/a
[2020-03-25] MEDS ORDERED: MIDAZOLAM HCL 2 MG/2 ML SINGLE DOSE VIAL ONE ×2 (09:24→09:34)
[2020-03-25] MEDS ORDERED: PROPOFOL 20 ML ONE ×2 (09:35)
[2020-03-25] MEDS ORDERED: metroNIDAZOLE 0.75% VAGINAL GEL 70 GM TUBE ONE (09:38)
[2020-03-25] MEDS ORDERED: metroNIDAZOLE 0.75% VAGINAL GEL 70 GM TUBE VG ONE (10:00)
[2020-03-25] MEDS ORDERED: IBUPROFEN 600 MG TABLET (FP) PO PRN (10:17)
[2020-03-25] MEDS ORDERED: PROMETHAZINE HCL 25 MG/1 ML VIAL IVPB PRN (10:19)
[2020-03-25] MEDS ORDERED: ACETAMINOPHEN 325 MG TABLET (FP) PO PRN (10:19)
[2020-03-25] MEDS ORDERED: oxyCODONE HCL 5 MG TABLET PO PRN (10:19)
[2020-03-25] MEDS ORDERED: ONDANSETRON 4 MG/2 ML VIAL IVPUSH PRN (10:19)
--- NOTE | 2020-03-25 10:29 | OP ---
Operative Note - Note: Operative Date: 03/25/20 Pre-Operative Diagnosis: HSIL Cervix, Non 16/18 HR HPV Pos Operation: LEEP CONE Biopsy Cervix Findings: ut av ns ., cx post, adnexa fur trapper rose's iodine , lower lip of cx unstained large loop used for LEEP cone bx Surgeon: Juliann Cazares Anesthesiologist/CHIEF INNOVATION OFFICER: Rajiv Varma Anesthesia: General Specimens Removed: loer lip of cx upto 2o'clock position. lower lip bet 11 & 2 oclock. ecc Estimated Blood Loss (mls): 2 Fluid Volume Replaced (mls): 600 (RL IV solution ) Operative Report Dictated: Yes
[2020-03-25] MEDS ORDERED: LACTATED RINGERS SOLUTION 1,000 ML/1,000 ML INFUS.BAG IV SCH (10:30)
[2020-03-25 12:35] VITALS: BP 111/63; PULSE 74; TEMP 97.7
--- NOTE | 2020-03-27 14:02 | OP ---
DATE OF OPERATION: 03/25/2020 PREOPERATIVE DIAGNOSIS: High-grade squamous intraepithelial lesion of the cervix (HGSIL of cervix) and non-16/18 high-risk human papilloma virus positive. OPERATION: Loop electrosurgical excision procedure (LEEP) cone biopsy, cervix. SURGEON: Juliann Caazres MD ANESTHESIOLOGIST: Rajiv Varma MD ANESTHESIA: General. FINDINGS: This is a 30-year-old, 2, para 2-0-0-2. Last delivery was June 2019. Patient is lactating. She has lactational amenorrhea. She is also on Depo-Provera. Her Pap smear in August 2019 was ASCUS and non-16/18 high- risk HPV positive. Colposcopy done in September 2019 was reported 2 o'clock as LSIL and 6 o'clock as HSIL cervix and ECC negative. PROCEDURE: Patient is taken to the operating room table, and she had voided the urine before that. General anesthesia was given. Lithotomy position was given. Pubis, perineum, external genitalia, vulva were cleaned with vinegar, and vagina was cleaned with vinegar. Plastic speculum was inserted into the vagina. Cervix was visualized. Lugol's iodine was applied on the cervix. Posterior lip unstained area was noted, and then, cervix internal os was located by passing the uterine sound. The large loop was selected for LEEP cone biopsies with a blend current, 50/50. First, the posterior lip up to the 2 o'clock and the 11 o'clock position was excised, and then, the remaining upper lip between 11 and 2 o'clock was excised. Then, ECC was done. Cervix was dilated up to number 6 dilator.Using Ball point cautery ,coagulation current the rest of the cervix was cauterized. Blood loss was less than 2 mL. Surgicel was inserted into the cervix. Patient tolerated the procedure well, and she was transferred to the recovery room in stable condition. Fco [id number] MTDD
--- NOTE | 2020-03-29 17:45 | PATH ---
Surgical Pathology Report Patient Name: LAKISHA MANRIQUEZ [facility]. Rec. #: [id number] /Age/Gender: 1990 (Age: 30) / F Account: [id number] Location: [facility] SURGICAL Taken: 03/25/2020 Received: 03/25/2020 Reported: 03/29/2020 Physicians: Juliann Cazares M.D. Specimen(s) Received A: ENDOCERVICAL CURETTINGS B: UPPER PORTION OF CERVIX 11+2 O'CLOCK C: LOWER PORTION OF CERVIX ANTERIOR TO 2 O'CLOCK Clinical History 31 year old ;LD 06/2019; PAP 09/2018 LSIL, Pap 08/2019 ASCUS abnormal 16/18 HPV Colposcopic biopsy 2:00 LSIL, 6 clock HS IL, ECC negative Final Diagnosis A. ENDOCERVICAL CURETTINGS: ENDOCERVICAL TISSUE WITH NO SIGNIFICANT PATHOLOGIC CHANGE. NEGATIVE FOR DYSPLASIA. B. UPPER PORTION OF CERVIX, 11+ 2 O'CLOCK, EXCISION: ZOHREH 1 (CERVICAL INTRAEPITHELIAL NEOPLASIA, GRADE 1) INVOLVING MARGINS. NO HIGH GRADE DYSPLASIA IDENTIFIED. C. LOWER PORTION OF CERVIX, ANTERIOR TO 2 O'CLOCK, EXCISION: ZOHREH 2 (CERVICAL INTRAEPITHELIAL NEOPLASIA, GRADE 2) AT TRANSFORMATION ZONE. ZOHREH 1 IS ALSO PRESENT. ACUTE AND CHRONIC CERVICITIS IDENTIFIED. SURGICAL MARGINS CANNOT BE ACCURATELY ASSESSED, SEE COMMENT. Comment: Although high grade dysplasia is not identified at the edge of the cervical tissue, ZOHREH 1 and ZOHREH 2 were seen in detached squamous epithelium fragments. Surgical margins cannot be accurately assessed due to the detached dysplastic epithelium. Suggest clinical correlation. Immunohistochemical stains (block C3, C4) show strong block positivity of p16 and an increase in Ki-67 expression in the upper two third of the lesion, support the diagnosis of ZOHREH 2. Immunohistochemistry stains p16 and Ki-67 performed at [place], [place] ([id number]) interpreted at [facility]. Positive and negative controls (internal if applicable) show appropriate results. Intradepartmental case reviewed with concordance on diagnosis Electronically Signed Partha Rojas M.D. Gross Description A. Received in formalin, labeled "endocervical curettings" are multiple irregular dark brown soft tissue measuring 0.4 x 0.2 x 0.1 cm in aggregate. The specimens are submitted in toto in one cassette. B. Received in formalin, labeled "upper portion of cervix, 11+ 2 o'clock" is a portion of mucosal tissue measuring 1.4 x 0.7 x 0.4 cm. The resection margin is inked blue. The specimen is not oriented. The mucosal surface is smooth. The specimen is serially sectioned and entirely submitted in 2 cassettes. C. Received in formalin, labeled "lower portion of cervix, anterior to 2 o'clock" is a portion of mucosal tissue measuring 2.5 x 0.9 x 0.4 cm. The resection margin is inked blue. The specimen is not oriented. The mucosal surface is smooth. The specimen is serially sectioned and entirely submitted in 4 cassettes. __ KWS/03/25/2020 dolly03/25/2020
== END 2020-03-25 14:00 | disposition home or self-care (01) ==
LOC: JASU-SURG 05:00
PROVIDERS: ATTEND Obstetrics & Gynecology
PROC: 0UBC7ZX Excision of Cervix, Via Natural or Artificial Opening, Diagnostic (ICD-10-PCS; principal; 2020-03-25 09:00)
DX: N87.1 Moderate cervical dysplasia (principal); R87.820 Cervical low risk human papillomavirus (HPV) DNA test positive
CPT/HCPCS: 88305-TC; 88307-TC; 94760

== ENCOUNTER 2020-06-04 10:43 | Emergency (ER) | payer OTHER ==
[2020-06-04 10:50] VITALS: BP 126/85; PULSE 101; TEMP 98.6; BMI 29.2
[2020-06-04] MEDS ORDERED: SODIUM CHLORIDE 1,000 ML IV STA (11:34)
[2020-06-04] MEDS ORDERED: KETOROLAC TROMETHAMINE 30 MG/1 ML VIAL IVPUSH ONE (11:34)
[2020-06-04] MEDS ORDERED: CLINDAMYCIN 600MG PREMIX IVPB 600 MG/50 ML BAG IVPB ONE ×2 (11:34→11:56)
[2020-06-04] MEDS ORDERED: KETOROLAC TROMETHAMINE 30 MG/1 ML VIAL ONE (11:52)
[2020-06-04 12:02] LABS: BASO % 0.5 % (0-2.0); EOS % 4.8 % (0-4.5); HEMATOCRIT 39.4 % (32.4-45.2); HEMOGLOBIN 12.8 GM/dL (10.7-15.3); LYMPH % 19.2 % (8-40); MCH 28.6 pg (25.7-33.7); MCHC 32.6 g/dl (32.0-36.0); MEAN CELL VOLUME 87.9 fl (80-96); MEAN PLT VOLUME 7.6 fl (7.5-11.1); MONO % 6.4 % (3.8-10.2); NEUT % 69.1 % (42.8-82.8); PLATELET COUNT 388 K/MM3 (134-434); RBC 4.48 M/mm3 (3.60-5.2); RDW 14.5 % (11.6-15.6); WHITE BLOOD COUNT 11.8 K/mm3 (4.0-10.0)
[2020-06-04 12:20] LABS: POTASSIUM 3.9 mmol/L (3.5-5.1)
[2020-06-04 12:22] LABS: ALBUMIN 3.7 g/dl (3.4-5.0); CALCIUM 8.6 mg/dL (8.5-10.1)
[2020-06-04 12:23] LABS: BLOOD UREA NITROGEN 7.1 mg/dL (7-18)
[2020-06-04 12:26] LABS: CREATININE 0.7 mg/dL (0.55-1.3)
[2020-06-04 12:27] LABS: BILIRUBIN,TOTAL 0.6 mg/dL (0.2-1); TOT PROT 7.6 g/dl (6.4-8.2)
[2020-06-04] MEDS ORDERED: CEPHALEXIN MONOHYDRATE 500 MG CAPSULE (UD) PO ONE (15:22)
== END 2020-06-04 15:35 | disposition home or self-care (01) ==
LOC: JERFT 10:43 → JER 10:43
PROC: 3E03329 Introduction of Other Anti-infective into Peripheral Vein, Percutaneous Approach (ICD-10-PCS; principal; 2020-06-04)
PROC: 3E0333Z Introduction of Anti-inflammatory into Peripheral Vein, Percutaneous Approach (ICD-10-PCS; 2020-06-04)
PROC: 3E0337Z Introduction of Electrolytic and Water Balance Substance into Peripheral Vein, Percutaneous Approach (ICD-10-PCS; 2020-06-04)
DX: N61.0 Mastitis without abscess (principal)
CPT/HCPCS: 36415; 76642-TC-LT; 80053; 85025; 99284-25

== ENCOUNTER 2025-03-10 17:34 | Emergency (ER) | payer OTHER ==
[2025-03-10 17:45] VITALS: BP 132/81; PULSE 73; RESP 18; TEMP 97.4; BMI 34.3
[2025-03-10] MEDS ORDERED: ONDANSETRON 4 MG/2 ML VIAL ONE (20:00)
[2025-03-10] MEDS ORDERED: ACETAMINOPHEN INJECTION 100 ML ONE (20:00)
[2025-03-10 20:22] LABS: EPI CELLS 17 /uL (0-25.1); HYALINE CASTS 1 /uL (0-3.1); URINE APPEARANCE CLEAR; URINE BACTERIA 23 /uL (0-1359); URINE BILIRUBIN NEGATIVE (NEGATIVE); URINE COLOR YELLOW; URINE GLUCOSE (UA) NEGATIVE (NEGATIVE); URINE KETONE NEGATIVE (NEGATIVE); URINE LEUK ESTERASE NEGATIVE (NEGATIVE); URINE NITRITE NEGATIVE (NEGATIVE); URINE PROTEIN NEGATIVE (NEGATIVE); URINE RBC 1419 /uL (0-23.9); URINE UROBILINOGEN 0.2 mg/dL (0.2-1.0); URINE WBC 17 /uL (0-25.8)
[2025-03-10] MEDS: SODIUM CHLORIDE 0.9% 500 ML INFUS.BAG IV ONE ×2 (20:22→22:14)
[2025-03-10] MEDS: ACETAMINOPHEN 1000 MG/100 ML BAG IVPB ONE (20:22)
[2025-03-10] MEDS: ONDANSETRON 4 MG/2 ML VIAL IVPUSH ONE (20:22)
[2025-03-10 20:35] LABS: ABSOLUTE IMMATURE GRANULOCYTES 0.12 x10^3/uL (0.0-0.031); BASOPHILS # 0.07 x10^3/uL (0.01-0.08); EOSINOPHIL % 0.2 % (0.7-5.8); EOSINOPHILS # 0.04 x10^3/uL (0.04-0.36); MCHC 32.6 g/dl (32.2-35.5); MEAN CELL VOLUME 87.0 fl (79.4-94.8); MEAN PLT VOLUME 9.5 fl (9.4-12.3); MONOCYTE # 0.96 x10^3/uL (0.24-0.86); MONOCYTE % 4.4 % (4.7-12.5); RDW 13.4 % (12.1-16.8)
[2025-03-10 21:10] LABS: TOT PROT 8.3 g/dl (6.4-8.2)
[2025-03-10 21:12] LABS: CO2 23.0 mmol/L (21-32)
[2025-03-10 21:13] LABS: ALK PHOS 69.0 U/L (40-150)
[2025-03-10 21:16] LABS: CREATININE 0.78 mg/dL (0.55-1.3); SGOT/AST 23.0 U/L (5-34); SGPT/ALT 20.0 U/L (0-55)
[2025-03-10 21:31] LABS: GLUCOSE,RANDOM 100.0 mg/dL (74-106)
[2025-03-10 21:36] LABS: HCV DIAGNOSTIC IN-HOUSE W/RFLX NON-REACTIVE (NONREACTIVE)
[2025-03-10 21:37] LABS: HIV INTERPRETATION NEGATIVE (NEGATIVE)
[2025-03-10] MEDS: SODIUM CHLORIDE 1,000 ML IV STA (22:15)
== END 2025-03-10 23:13 | disposition home or self-care (01) ==
LOC: JER 17:34
PROC: 3E033NZ Introduction of Analgesics, Hypnotics, Sedatives into Peripheral Vein, Percutaneous Approach (ICD-10-PCS; principal; 2025-03-10)
PROC: 3E033GC Introduction of Other Therapeutic Substance into Peripheral Vein, Percutaneous Approach (ICD-10-PCS; 2025-03-10)
DX: R10.31 Right lower quadrant pain (principal); R11.2 Nausea with vomiting, unspecified
CPT/HCPCS: 36415; 74177-TC; 80053; 81003; 83605; 84703; 85025; 86803; 87086; 87389; 99285-25; Q9967